=== PATIENT | female | born 1965 | race Two or more races ===

== ENCOUNTER 2016-11-04 00:28 | Emergency (ER) | END 2016-11-04 03:30 | disposition left against medical advice (07) | LOC: EDSEX → ER 00:28 | DX: Z53.21 Procedure and treatment not carried out due to patient leaving prior to being seen by health care provider (principal) ==

== ENCOUNTER 2016-11-06 12:31 | Emergency (ER) | payer MEDICARE, MEDICAID ==
--- NOTE | 2016-11-06 13:07 | ER Document Report ---
ED Medical Screen (RME) - General Chief Complaint: High Blood Pressure Stated Complaint: FEVER/BLOOD PRESSURE PROBLEMS Notes: Patient says that she's had a rash all over her body for about a month. Patient came here Friday for this condition, but it was so busy that she did not get seen. She went to a local physician's office today the rash and was noted to have a blood pressure, according to the patient, of around 230. The physician called EMS to transport the patient here. Patient says she has a history of high blood pressure but has been out of her medications for over a week. Patient does not have any symptoms that she attributes to the high blood pressure. Specifically, denies any headache, chest pain, shortness of breath, etc. Does say that she's had some fever for a couple of days. Finally, patient is out of her diabetes medications (NIDDM) for about 4 days. Patient is from [facility], but has permanently moved to this area. TRAVEL OUTSIDE OF THE [place] IN LAST 30 DAYS: No - Related Data Allergies/Adverse Reactions: No Known Allergies Allergy (Verified 11/06/16 12:56) Past Medical History Renal/ Medical History: Denies: Hx Peritoneal Dialysis Physical Exam - Vital signs Vitals: Temp Pulse Resp BP Pulse Ox 98.4 F 74 20 198/90 H 98 11/06/16 12:44 11/06/16 12:44 11/06/16 12:44 11/06/16 12:44 11/06/16 12:44 Course - Vital Signs Vital signs: Temp Pulse Resp BP Pulse Ox 98.4 F 74 20 198/90 H 98 11/06/16 12:44 11/06/16 12:44 11/06/16 12:44 11/06/16 12:44 11/06/16 12:44
[2016-11-06 13:39] LABS: ABSOLUTE BASOPHILS # (AUTO) 0.1 10^3/uL (0.0-0.2); ABSOLUTE EOSINOPHILS # (AUTO) 0.3 10^3/uL (0.0-0.6); ABSOLUTE LYMPHOCYTES (AUTO) 2.1 10^3/uL (0.5-4.7); ABSOLUTE MONOCYTES (AUTO) 0.4 10^3/uL (0.1-1.4); ABSOLUTE NEUT (AUTO) 6.6 10^3/uL (1.7-8.2); BASOPHILS % (AUTO) 0.6 % (0-2); EOSINOPHILS % (AUTO) 3.1 % (0-6); HEMATOCRIT 40.9 % (37.9-51.0); HEMOGLOBIN 13.6 g/dL (13.5-17.0); HGB HCT DIFFERENCE -0.1; MEAN CORPUSCULAR HEMOGLOBIN 26.9 pg (27.0-33.4); MEAN CORPUSCULAR HGB CONC 33.3 g/dL (32.0-36.0); MEAN CORPUSCULAR VOLUME 81 fl (80-97); MONOCYTES % (AUTO) 4.2 % (3-13); RED BLOOD COUNT 5.06 10^6/uL (4.35-5.55); RED CELL DISTRIBUTION WIDTH 14.7 % (11.5-14.0); SEGMENTED NEUTROPHILS % (AUTO) 70.1 % (42-78); WHITE BLOOD COUNT 9.4 10^3/uL (4.0-10.5)
[2016-11-06 13:46] LABS: ALANINE AMINOTRANSFERASE 32 U/L (21-72); ALBUMIN 3.8 g/dL (3.5-5.0); ALKALINE PHOSPHATASE 117 U/L (38-126); ANION GAP 10 (5-19); ASPARTATE AMINO TRANSFERASE 25 U/L (17-59); BILIRUBIN,DIRECT 0.2 mg/dL (0.0-0.4); BILIRUBIN,TOTAL 0.5 mg/dL (0.2-1.3); BLOOD UREA NITROGEN 14 mg/dL (7-20); CARBON DIOXIDE 27 mmol/L (22-30); CHLORIDE 104 mmol/L (98-107); CREATININE RESULT 0.96 mg/dL (0.52-1.25); GLUCOSE 169 mg/dL (75-110); POTASSIUM 4.7 mmol/L (3.6-5.0); SODIUM 141.2 mmol/L (137-145); TOTAL PROTEIN 7.2 g/dL (6.3-8.2)
[2016-11-06 13:50] LABS: APPEARANCE,URINE CLOUDY; BILIRUBIN,URINE NEGATIVE (NEGATIVE); GLUCOSE, URINE 50 mg/dL (NEGATIVE); KETONES,URINE NEGATIVE (NEGATIVE); LEUKOCYTE ESTERASE,URINE SMALL (NEGATIVE); NITRITE,URINE NEGATIVE (NEGATIVE); PROTEIN,URINE NEGATIVE (NEGATIVE); URINE SPECIFIC GRAVITY 1.019; UROBILINOGEN,URINE NEGATIVE mg/dL (<2.0)
[2016-11-06] MEDS ORDERED: METFORMIN HCL 500 MG TABLET PO ONE (13:50)
[2016-11-06] MEDS ORDERED: LOSARTAN POTASSIUM 50 MG TABLET PO ONE (13:50)
--- NOTE | 2016-11-06 14:04 | ER Document Report ---
ED General - General Chief Complaint: High Blood Pressure Stated Complaint: FEVER/BLOOD PRESSURE PROBLEMS Mode of Arrival: Ambulatory Information source: Patient Notes: 51-year-old female presents with multiple complaints. Patient recently moved here and is out of her blood pressure and diabetes medication. Patient notes she went to a clinic and was noted to have high blood pressure was immediately sent in for evaluation. Patient also notes that she has had a rash throughout her body which has been itchy red. Patient also notes that she has had fevers which resolved a few days ago TRAVEL OUTSIDE OF THE [place] IN LAST 30 DAYS: No - HPI Onset: Other Onset/Duration: Persistent Quality of pain: Burning Severity: Mild Pain Level: 1 Associated symptoms: Other Exacerbated by: Denies Relieved by: Denies Similar symptoms previously: Yes Recently seen / treated by doctor: Yes - Related Data Allergies/Adverse Reactions: No Known Allergies Allergy (Verified 11/06/16 12:56) Home Medications: Current Home Medications Albuterol Sulfate [Proair HFA] 1 - 2 puff IH Q4 PRN 11/06/16 [History] Losartan Potassium 50 mg PO BID 11/06/16 [History] Metformin HCl [Metformin HCl ER] 1,000 mg PO BID 11/06/16 [History] Past Medical History - Social History Smoking Status: Never Smoker Cigarette use (# per day): No Chew tobacco use (# tins/day): No Smoking Education Provided: No Frequency of alcohol use: None Drug Abuse: None Family History: Reviewed & Not Pertinent Patient has suicidal ideation: No Patient has homicidal ideation: No - Past Medical History Cardiac Medical History: Reports: Hx Hypertension Pulmonary Medical History: Reports: Hx Asthma Endocrine Medical History: Reports: Hx Diabetes Mellitus Type 1 - Immunizations Hx Diphtheria, Pertussis, Tetanus Vaccination: Yes Review of Systems - Review of Systems Notes: REVIEW OF SYSTEMS: CONSTITUTIONAL : Admits to fever EENT: Denies eye, ear, throat, or mouth pain or symptoms. Denies nasal or sinus congestion or discharge. Denies throat, tongue, or mouth swelling or difficulty swallowing. CARDIOVASCULAR: Denies chest pain. Denies palpitations or racing or irregular heart beat. Denies ankle edema. RESPIRATORY: Denies cough, cold, or chest congestion. Denies shortness of breath, difficulty breathing, or wheezing. GASTROINTESTINAL: Denies abdominal pain or distention. Denies nausea, vomiting , or diarrhea. Denies blood in vomitus, stools, or per rectum. Denies black, tarry stools. Denies constipation. GENITOURINARY: Denies difficulty urinating, painful urination, burning, frequency, blood in urine, or discharge. FEMALE GENITOURINARY: Denies vaginal bleeding, heavy or abnormal periods, irregular periods. Denies vaginal discharge or odor. MUSCULOSKELETAL: Denies back or neck pain or stiffness. Denies joint pain or swelling. SKIN: Admits to generalized rash HEMATOLOGIC : Denies easy bruising or bleeding. LYMPHATIC: Denies swollen, enlarged glands. NEUROLOGICAL: Denies confusion or altered mental status. Denies passing out or loss of consciousness. Denies dizziness or lightheadedness. Denies headache. Denies weakness or paralysis or loss of use of either side. Denies problems with gait or speech. Denies sensory loss, numbness, or tingling. Denies seizures. PSYCHIATRIC: Denies anxiety or stress. Denies depression, suicidal ideation, or homicidal ideation. ALL OTHER SYSTEMS REVIEWED AND NEGATIVE. Dictation was performed using [employer] voice recognition software PHYSICAL EXAMINATION: GENERAL: Well-appearing, well-nourished and in no acute distress. HEAD: Atraumatic, normocephalic. EYES: Pupils equal round and reactive to light, extraocular movements intact, conjunctiva are normal. ENT: Nares patent, oropharynx clear without exudates. Moist mucous membranes. NECK: Normal range of motion, supple without lymphadenopathy LUNGS: Breath sounds clear to auscultation bilaterally and equal. No wheezes rales or rhonchi. HEART: Regular rate and rhythm without murmurs ABDOMEN: Soft, nontender, nondistended abdomen. No guarding, no rebound. No masses appreciated. Female : deferred Musculoskeletal: Normal range of motion, no pitting or edema. No cyanosis. NEUROLOGICAL: Cranial nerves grossly intact. Normal speech, normal gait. Normal sensory, motor exams PSYCH: Normal mood, normal affect. SKIN: Extensive rash lev noted on abd, under breasts bilateral right worse than left , no obvious secondary sign of infection. Physical Exam - Vital signs Vitals: Temp Pulse Resp BP Pulse Ox 98.4 F 74 20 198/90 H 98 11/06/16 12:44 11/06/16 12:44 11/06/16 12:44 11/06/16 12:44 11/06/16 12:44 Course - Re-evaluation Re-evalutation: 11/06/16 15:25 Lab work noted no significant abnormality except for mild hypoglycemia, patient will be given refill on her blood pressure and diabetes medication, she will be treated for her candidiasis as well as antibiotics for possible secondary infection which at this time I do not see however given history of recent fever I have high suspicion for After performing a Medical Screening Examination, I estimate there is LOW risk for any life threatening rash. At this time the patient looks extremely well and there are no signs of systemic infection, however this may change at any time and the rash may change. I have reevaluated this patient multiple times and no significant life threatening changes are noted. The patient and I have discussed the diagnosis and risks, and we agree with discharging home with close follow-up with the understanding that symptoms and presentations can change. We also discussed returning to the Emergency Department immediately if new or worsening symptoms occur. We have discussed the symptoms which are most concerning (e.g., changing or worsening pain, fever, numbness, weakness, cool or painful digits) that necessitate immediate return. - Vital Signs Vital signs: Temp Pulse Resp BP Pulse Ox 98.4 F 74 20 179/80 H 99 11/06/16 12:44 11/06/16 12:44 11/06/16 14:01 11/06/16 14:01 11/06/16 14:01 - Laboratory Result Diagrams: 11/06/16 13:05 11/06/16 13:05 Laboratory results interpreted by me: 11/06/16 11/06/16 11/06/16 13:05 13:05 13:10 MCH 26.9 L RDW 14.7 H Glucose 169 H Urine Glucose (UA) 50 H Ur Leukocyte Esterase SMALL H Discharge - Discharge Clinical Impression: Medication refill, Yeast infection Hypertension Qualifiers: Hypertension type: essential hypertension Qualified Code(s): I10 - Essential ( primary) hypertension Condition: Stable Disposition: HOME, SELF-CARE Instructions: High Blood Pressure, Requiring Treatment ([facility]) Prescriptions: Albuterol Sulfate [Proair HFA Inhalation Aerosol 8.5 gm MDI] 2 puff IH Q4H PRN # 1 mdi PRN Reason: Clindamycin HCl 300 mg PO Q6 #40 capsule Fluconazole [Diflucan] 150 mg PO ONCE PRN #2 tablet PRN Reason: Losartan Potassium 50 mg PO BID #60 tablet Metformin HCl [Glucophage] 1,000 mg PO BID #60 tablet Nystatin 30 gm TP BID 14 Days Referrals: RUTHIE MODI DO [ACTIVE STAFF] - Follow up in 3-5 days
[2016-11-06 14:13] VITALS: BP 179/80
--- NOTE | 2016-11-06 20:08 | EKG REPORT ---
SEVERITY:- BORDERLINE ECG - SINUS RHYTHM BORDERLINE PROLONGED QT INTERVAL : Confirmed by: Karon Castillo MD 06-Nov-2016 20:07:03
== END 2016-11-06 14:13 | disposition home or self-care (01) ==
LOC: ER 12:31 → EDSEX 12:31 → ER 14:13
DX: Z76.0 Encounter for issue of repeat prescription (principal); B37.9 Candidiasis, unspecified; R03.0 Elevated blood-pressure reading, without diagnosis of hypertension; R50.9 Fever, unspecified
CPT/HCPCS: 93005; 99284; 36415; 87040; 85025; 80053; 81001; 93010; A9270 ×2

== ENCOUNTER 2016-11-18 10:32 | Emergency (ER) | payer MEDICARE, MEDICAID ==
--- NOTE | 2016-11-18 11:12 | ER Document Report ---
HPI - HPI Patient complains to provider of: skin rash Onset: Other Onset/Duration: Persistent - 3 months, worse in the past 2 weeks Quality of pain: Burning Pain Level: 5 Context: Patient complains of pruritic skin rash for the past several months that worsened over the past 2 weeks. Patient complains of burning and itching to extremities. Patient has seen her primary doctor for this and given medications but continues with symptoms. Patient does state that she was diagnosed with psoriasis as a child but has not had any other flareups. Associated Symptoms: Other - Skin rash. denies: Fever Exacerbated by: Denies Relieved by: Denies Similar symptoms previously: Yes Recently seen / treated by doctor: Yes - ROS ROS below otherwise negative: Yes Systems Reviewed and Negative: Yes All other systems reviewed and negative - CONSTITUTIONAL Constitutional: DENIES: Fever, Chills - NEURO Neurology: DENIES: Weakness - RESPIRATORY Respiratory: DENIES: Trouble Breathing, Coughing - GASTROINTESTINAL Gastrointestinal: DENIES: Nausea - DERM Skin Color: Erythema Skin Problems: Rash Past Medical History - General Information source: Patient - Social History Smoking Status: Never Smoker Frequency of alcohol use: None Drug Abuse: None Occupation: none Lives with: Family Family History: Reviewed & Not Pertinent Patient has suicidal ideation: No Patient has homicidal ideation: No - Past Medical History Cardiac Medical History: Reports: Hx Hypertension Pulmonary Medical History: Reports: Hx Asthma Endocrine Medical History: Reports: Hx Diabetes Mellitus Type 1 Renal/ Medical History: Denies: Hx Peritoneal Dialysis Skin Medical History: Reports Hx Psoriasis Past Surgical History: Reports: Hx Cholecystectomy - Immunizations Hx Diphtheria, Pertussis, Tetanus Vaccination: Yes Vertical Provider Document - CONSTITUTIONAL Agree With Documented VS: Yes Exam Limitations: No Limitations General Appearance: WD/WN, No Apparent Distress - INFECTION CONTROL TRAVEL OUTSIDE OF THE [place] IN LAST 30 DAYS: No - HEENT HEENT: Atraumatic, Normocephalic - NECK Neck: Normal Inspection, Supple - RESPIRATORY Respiratory: Breath Sounds Normal, No Respiratory Distress, Chest Non-Tender O2 Sat by Pulse Oximetry: 97 - CARDIOVASCULAR Cardiovascular: Regular Rate, Regular Rhythm, No Murmur - BACK Back: Normal Inspection - MUSCULOSKELETAL/EXTREMETIES Musculoskeletal/Extremeties: MAEW - NEURO Level of Consciousness: Awake, Alert, Appropriate - DERM Integumentary: Warm, Dry, Rash - Diffuse erythematous maculopapular rash with scaling plaques distributed to trunk, extremities and back. Bilateral lower extremities with confluent patches and erythema with opened crusted lesions to lower extremity. Course - Re-evaluation Re-evalutation: 11/18/16 11:[address] Hudson, Dr Hudson to bedside for examination. Does not recommend any additional steroids or antifungal medication. Recommends continued use of hydroxyzine that patient has an outpatient follow-up with dermatology for further evaluation. - Vital Signs Vital signs: Temp Pulse Resp BP Pulse Ox 98.4 F 76 16 188/86 H 97 11/18/16 10:36 11/18/16 10:36 11/18/16 10:36 11/18/16 10:36 11/18/16 10:36 Discharge - Discharge Clinical Impression: Skin rash, History of hypertension Cellulitis Qualifiers: Site of cellulitis: extremity Site of cellulitis of extremity: lower extremity Laterality: unspecified laterality Qualified Code(s): L03.119 - Cellulitis of unspecified part of limb Condition: Stable Disposition: HOME, SELF-CARE Instructions: High Blood Pressure ([facility]), Cellulitis ([facility]), Cephalexin ([facility]) Additional Instructions: Return immediately for any new or worsening symptoms Followup with your primary care provider, call tomorrow to make a followup appointment You'll need to follow-up with a business broker, call today for a follow-up appointment. Your primary doctor may need to make the referral to dermatology. Continue to take the hydroxyzine to help with itching. You may use a mild lotion such as Cetaphil, Aquaphor or Lubriderm to help moisturize skin Prescriptions: Cephalexin Monohydrate [Keflex 500 mg Capsule] 500 mg PO Q6H 5 Days Forms: Elevated Blood Pressure Referrals: DERMATOLOGY [Provider Group] - Follow up as needed RUTHIE MODI DO [ACTIVE STAFF] - Follow up tomorrow
[2016-11-18 11:51] VITALS: BP 151/67
== END 2016-11-18 11:51 | disposition home or self-care (01) ==
LOC: ER 10:32
DX: R21 Rash and other nonspecific skin eruption (principal); L03.119 Cellulitis of unspecified part of limb; L40.9 Psoriasis, unspecified; E10.9 Type 1 diabetes mellitus without complications; I10 Essential (primary) hypertension; J45.909 Unspecified asthma, uncomplicated
CPT/HCPCS: 99282

== ENCOUNTER 2017-09-30 12:19 | Inpatient (IN) | payer MEDICAID, MEDICARE ==
--- NOTE | 2017-09-30 13:00 | ER Document Report ---
ED Medical Screen (RME) - General Chief Complaint: Vomiting Stated Complaint: VOMITING Time Seen by Provider: 09/30/17 12:46 Mode of Arrival: Ambulatory Information source: Patient Notes: 52-year-old female presents with complaints of epigastric abdominal pain last night with one episode of vomiting small amount of blood. Patient notes she had a fever of 104 yesterday but since then everything has resolved. She denies any pain at this time or any other concerns I have greeted and performed a rapid initial assessment of this patient. A comprehensive ED assessment and evaluation of the patient, analysis of test results and completion of the medical decision making process will be conducted by additional ED providers. PHYSICAL EXAMINATION: GENERAL: Well-appearing, well-nourished and in no acute distress. HEAD: Atraumatic, normocephalic. EYES: Pupils equal round extraocular movements intact, conjunctiva are normal. ENT: Nares patent NECK: Normal range of motion LUNGS: No respiratory distress Musculoskeletal: Normal range of motion NEUROLOGICAL: Normal speech, normal gait. PSYCH: Normal mood, normal affect. SKIN: Warm, Dry, normal turgor, no rashes or lesions noted. TRAVEL OUTSIDE OF THE [place] IN LAST 30 DAYS: No - Related Data Allergies/Adverse Reactions: No Known Allergies Allergy (Verified 09/30/17 12:40) Past Medical History - Social History Chew tobacco use (# tins/day): No Frequency of alcohol use: None Drug Abuse: None - Past Medical History Cardiac Medical History: Reports: Hx Hypercholesterolemia, Hx Hypertension Pulmonary Medical History: Reports: Hx Asthma Neurological Medical History: Reports: Hx Cerebrovascular Accident - 2008 Endocrine Medical History: Reports: Hx Diabetes Mellitus Type 1, Hx Diabetes Mellitus Type 2 Renal/ Medical History: Denies: Hx Peritoneal Dialysis Skin Medical History: Reports Hx Psoriasis Past Surgical History: Reports: Hx Cholecystectomy - Immunizations Hx Diphtheria, Pertussis, Tetanus Vaccination: Yes History of Influenza Vaccine for 04/2017 - 09/2017 Season: Yes Influenza Administration Date for 04/2017 - 09/2017 Season: 08/21/16 Physical Exam - Vital signs Vitals: Temp Pulse Resp BP Pulse Ox 97.9 F 112 H 20 164/90 H 97 09/30/17 12:49 09/30/17 12:49 09/30/17 12:49 09/30/17 12:49 09/30/17 12:49 Course - Vital Signs Vital signs: Temp Pulse Resp BP Pulse Ox 97.9 F 112 H 20 164/90 H 97 09/30/17 12:49 09/30/17 12:49 09/30/17 12:49 09/30/17 12:49 09/30/17 12:49
[2017-09-30 13:28] LABS: HEMATOCRIT 44.1 % (36.0-47.0); HEMOGLOBIN 14.4 g/dL (12.0-15.5); MEAN CORPUSCULAR HEMOGLOBIN 26.5 pg (27.0-33.4); MEAN CORPUSCULAR HGB CONC 32.6 g/dL (32.0-36.0); MEAN CORPUSCULAR VOLUME 81 fl (80-97); PLATELET COUNT 288 10^3/uL (150-450); RED BLOOD COUNT 5.43 10^6/uL (3.72-5.28); RED CELL DISTRIBUTION WIDTH 13.9 % (11.5-14.0); WHITE BLOOD COUNT 21.5 10^3/uL (4.0-10.5)
[2017-09-30 13:37] LABS: APPEARANCE,URINE SLIGHTLY-CLOUDY; BILIRUBIN,URINE NEGATIVE (NEGATIVE); COLOR,URINE YELLOW; GLUCOSE, URINE 150 mg/dL (NEGATIVE); KETONES,URINE NEGATIVE (NEGATIVE); LEUKOCYTE ESTERASE,URINE MODERATE (NEGATIVE); NITRITE,URINE NEGATIVE (NEGATIVE); PROTEIN,URINE 30 mg/dL (NEGATIVE); URINE SPECIFIC GRAVITY 1.018
[2017-09-30 13:45] LABS: ABSOLUTE LYMPHOCYTES# (MANUAL) 0.4 10^3/uL (0.5-4.7); ABSOLUTE MONOCYTES # (MANUAL) 0.2 10^3/uL (0.1-1.4); ABSOLUTE NEUTROPHILS# (MANUAL) 20.9 10^3/uL (1.7-8.2); BAND NEUTROPHILS % (MANUAL) 2 % (3-5); BASOPHILS % (MANUAL) 0 % (0-2); EOSINOPHILS % (MANUAL) 0 % (0-6); LYMPHOCYTES % (MANUAL) 2 % (13-45); MONOCYTES % (MANUAL) 1 % (3-13); SEGMENTED NEUTROPHILS % (MAN) 95 % (42-78); TOTAL CELLS COUNTED 100
[2017-09-30 13:46] LABS: ALANINE AMINOTRANSFERASE 131 U/L (9-52); ALBUMIN 4.3 g/dL (3.5-5.0); ALKALINE PHOSPHATASE 183 U/L (38-126); ANION GAP 15 (5-19); ASPARTATE AMINO TRANSFERASE 144 U/L (14-36); BILIRUBIN,DIRECT 0.7 mg/dL (0.0-0.4); BILIRUBIN,TOTAL 1.6 mg/dL (0.2-1.3); BLOOD UREA NITROGEN 14 mg/dL (7-20); CALCIUM 9.7 mg/dL (8.4-10.2); CARBON DIOXIDE 20 mmol/L (22-30); CHLORIDE 103 mmol/L (98-107); CREATINE KINASE 113 U/L (30-135); GLUCOSE 340 mg/dL (75-110); LIPASE 51.9 U/L (23-300); POTASSIUM 3.9 mmol/L (3.6-5.0); RBC MORPHOLOGY COMMENT NORMO-CYTIC/CHROMIC; SODIUM 138.3 mmol/L (137-145); TOTAL PROTEIN 7.8 g/dL (6.3-8.2); TOXIC GRANULATION SLIGHT
[2017-09-30 13:47] LABS: PLATELET COMMENT ADEQUATE
--- NOTE | 2017-09-30 13:52 | RADIOLOGY REPORT (SQ) ---
EXAM DESCRIPTION: CHEST PA/LAT COMPLETED DATE/TIME: 09/30/2017 1:37 pm REASON FOR STUDY: fever COMPARISON: None. NUMBER OF VIEWS: Two view. TECHNIQUE: Frontal and lateral radiographic views of the chest acquired. LIMITATIONS: None. FINDINGS: LUNGS AND PLEURA: No opacities, masses or pneumothorax. No pleural effusion. MEDIASTINUM AND HILAR STRUCTURES: No masses or contour abnormalities. HEART AND VASCULATURE: Heart normal size. No evidence for failure. BONY STRUCTURES: No acute findings. HARDWARE: None. OTHER: No other significant finding. IMPRESSION: NO SIGNIFICANT RADIOGRAPHIC FINDING IN THE CHEST. TECHNICAL DOCUMENTATION: JOB ID: [id number] [employer]- All Rights Reserved Reading location - IP/workstation name: [email or web address]
[2017-09-30] MEDS ORDERED: NORMAL SALINE 1000 ML 1,000 ML IV ONE ×2 (13:54→16:43)
--- NOTE | 2017-09-30 13:55 | ER Document Report ---
ED General - General Chief Complaint: Vomiting Stated Complaint: VOMITING Time Seen by Provider: 09/30/17 12:46 Mode of Arrival: Ambulatory Notes: This is a 52-year-old female patient, history of cirrhosis, history of diabetes with history of stroke within the last year. States that she had a fever yesterday with chest pain and burning in the chest. Fever at home was 104 with an oral thermometer. Some nausea but no vomiting. No abdominal pain. No back pain. No shortness of breath. Also complaining of burning in her breasts TRAVEL OUTSIDE OF THE [place] IN LAST 30 DAYS: No - HPI Onset: Yesterday Onset/Duration: Constant - Related Data Allergies/Adverse Reactions: No Known Allergies Allergy (Verified 09/30/17 12:40) Past Medical History - General Information source: Patient - Social History Smoking Status: Never Smoker Cigarette use (# per day): No Chew tobacco use (# tins/day): No Frequency of alcohol use: None Drug Abuse: None Lives with: Spouse/Significant other Family History: CAD, CVA, DM, Hypertension Patient has suicidal ideation: No Patient has homicidal ideation: No - Past Medical History Cardiac Medical History: Reports: Hx Hypercholesterolemia, Hx Hypertension Pulmonary Medical History: Reports: Hx Asthma Neurological Medical History: Reports: Hx Cerebrovascular Accident - 2008 Endocrine Medical History: Reports: Hx Diabetes Mellitus Type 1, Hx Diabetes Mellitus Type 2 Renal/ Medical History: Denies: Hx Peritoneal Dialysis Skin Medical History: Reports Hx Psoriasis Past Surgical History: Reports: Hx Cholecystectomy - Immunizations Hx Diphtheria, Pertussis, Tetanus Vaccination: Yes Hx Pneumococcal Vaccination: 02/18/09 Review of Systems - Review of Systems Constitutional: Chills, Fever, Weakness. denies: Malaise EENT: denies: Eye pain, Double vision, Ear pain, Throat pain, Difficulty swallowing, Throat swelling, Mouth pain Cardiovascular: Chest pain, Heart racing, Lightheaded. denies: Dizziness Respiratory: Hurts to breathe. denies: Cough, Short of breath, Wheezing Gastrointestinal: denies: Abdominal pain, Diarrhea, Nausea, Vomiting Genitourinary: denies: Burning, Dysuria, Discharge, Flank pain, Urgency Musculoskeletal: denies: Back pain, Gout, Joint pain Skin: denies: Dryness, Lesions, Lumps, Rash Hematologic/Lymphatic: denies: Anemia, Blood clots, Easy bleeding, Easy bruising Neurological/Psychological: Numbness - From previous stroke affecting the left side.. denies: Confusion, Dementia, Depression, Weakness Physical Exam - Vital signs Vitals: Temp Pulse Resp BP Pulse Ox 97.9 F 112 H 20 164/90 H 97 09/30/17 12:49 09/30/17 12:49 09/30/17 12:49 09/30/17 12:49 09/30/17 12:49 Interpretation: Tachycardic - General General appearance: Appears well, Alert - HEENT Head: Normocephalic, Atraumatic Eyes: Normal Pupils: PERRL - Respiratory Respiratory status: No respiratory distress Chest status: Nontender Breath sounds: Normal Chest palpation: Normal - Cardiovascular Rhythm: Tachycardia Heart sounds: Normal auscultation Murmur: No Notes: Outpatient of the sternal borders on the left and right cause some mild pain. Breast exam negative for significant little lumps or bumps. No obvious breast cellulitis. - Abdominal Inspection: Normal Distension: No distension Bowel sounds: Normal Tenderness: Nontender Organomegaly: No organomegaly - Back Back: Normal, Nontender - Extremities General upper extremity: Normal inspection, Nontender, Normal color, Normal ROM , Normal temperature General lower extremity: Normal inspection, Nontender, Normal color, Normal ROM , Normal temperature, Normal weight bearing. No: Vishnu's sign - Neurological Neuro grossly intact: Yes Cognition: Normal Orientation: AAOx4 Dickson Coma Scale Eye Opening: Spontaneous Kermit Coma Scale Verbal: Oriented Kermit Coma Scale Motor: Obeys Commands Kermit Coma Scale Total: 15 Speech: Normal Motor strength normal: LUE, RUE, LLE, RLE Sensory: Normal - Psychological Associated symptoms: Normal affect, Normal mood - Skin Skin Temperature: Warm Skin Moisture: Dry Skin Color: Normal Course - Re-evaluation Re-evalutation: 09/30/17 13:58 She with reported fever at home of 104. Elevated white count over 20,000. Getting blood cultures and lactic acid. IV fluids, CT chest and reassess. 09/30/17 14:02 Elevated cardiac troponin at 0.129. Aspirin ordered. EKG ordered. CTA of the chest ordered. 09/30/17 16:42 Patient appears to have pneumonia based on CT scan. Elevated WBC count at over 20,000. IV fluids, antibiotics started. Consulted hospitalist who will admit at this time. - Vital Signs Vital signs: Temp Pulse Resp BP Pulse Ox 97.9 F 112 H 20 164/90 H 97 09/30/17 12:49 09/30/17 12:49 09/30/17 12:49 09/30/17 12:49 09/30/17 12:49 - Laboratory Result Diagrams: 09/30/17 13:12 09/30/17 13:12 Laboratory results interpreted by me: 09/30/17 09/30/17 09/30/17 13:12 13:12 13:12 WBC 21.5 H RBC 5.43 H MCH 26.5 L Seg Neuts % (Manual) 95 H Band Neutrophils % 2 L Lymphocytes % (Manual) 2 L Monocytes % (Manual) 1 L Abs Neuts (Manual) 20.9 H Abs Lymphs (Manual) 0.4 L Carbon Dioxide 20 L Glucose 340 H Lactic Acid Total Bilirubin 1.6 H Direct Bilirubin 0.7 H AST 144 H ALT 131 H Alkaline Phosphatase 183 H Urine Protein 30 H Urine Glucose (UA) 150 H Urine Urobilinogen 2.0 H Ur Leukocyte Esterase MODERATE H 09/30/17 15:47 WBC RBC MCH Seg Neuts % (Manual) Band Neutrophils % Lymphocytes % (Manual) Monocytes % (Manual) Abs Neuts (Manual) Abs Lymphs (Manual) Carbon Dioxide Glucose Lactic Acid 2.6 H Total Bilirubin Direct Bilirubin AST ALT Alkaline Phosphatase Urine Protein Urine Glucose (UA) Urine Urobilinogen Ur Leukocyte Esterase - EKG Interpretation by Fl EKG shows normal: Sinus rhythm, [place], Intervals, QRS Complexes. abnormal: ST-T Waves When compared to previous EKG there are: No significant change Additional EKG results interpreted by me: 09/30/17 16:11 T-wave inversions inferior lateral leads Discharge - Discharge Clinical Impression: SIRS (systemic inflammatory response syndrome) Bilateral pneumonia Qualifiers: Pneumonia type: due to unspecified organism Lung location: unspecified part of lung Qualified Code(s): J18.9 - Pneumonia, unspecified organism Condition: Good Disposition: ADMITTED INPATIENT Admitting Provider: Hospitalist - [facility] Admitted: Telemetry
[2017-09-30 13:58] LABS: CREATINE KINASE MB 1.61 ng/mL (<4.55)
[2017-09-30 14:00] LABS: TROPONIN I 0.129 ng/mL
[2017-09-30] MEDS ORDERED: ASPIRIN 81 MG TABLET, CHEWABLE PO ONE (14:01)
--- NOTE | 2017-09-30 16:30 | RADIOLOGY REPORT (SQ) ---
EXAM DESCRIPTION: CT CHEST WITH COMPLETED DATE/TIME: 09/30/2017 4:19 pm REASON FOR STUDY: chest pain, tachycardia, elevated ddimer COMPARISON: Chest x-ray dated 09/30/2017. TECHNIQUE: CT scan of the chest performed using helical scanning technique with dynamic intravenous contrast injection. Images reviewed with lung, soft tissue and bone windows. Reconstructed coronal and sagittal MPR images reviewed. All images stored on PACS. All CT scanners at this facility use dose modulation, iterative reconstruction, and/or weight based d osing when appropriate to reduce radiation dose to as low as reasonably achievable (ALARA). [facility]: Dose Right [facility]: CareDose [facility]: Dose Right [facility]: Teradose 4D [facility]: [email or web address] CONTRAST TYPE AND DOSE: contrast/concentration: Isovue 370.00 mg/ml; Total Contrast Delivered: 80.0 ml; Total Saline Delivered: 51.1 ml RENAL FUNCTION: BUN 14 creatinine 0.72. RADIATION DOSE: CT Rad equipment meets quality standard of care and radiation dose reduction techniq ues were employed. CTDIvol: 21.1 mGy. DLP: 803 mGy-cm. . LIMITATIONS: None. FINDINGS: LUNGS AND PLEURA: Scattered airspace disease in the right and left lower lobe. No pneumot horax. No effusions. HILAR AND MEDIASTINAL STRUCTURES: No identified masses or abnormal nodes. HEART AND VASCULAR STRUCTURES: No aneurysm or dissection. No central pulmonary emboli. No pericardi al effusion. HARDWARE: None in the chest. UPPER ABDOMEN: No significant findings. Limited exam. THYROID AND OTHER SOFT TISSUES: No masses. No adenopathy. BONES: No significant finding. OTHER: No other significant finding. IMPRESSION: SCATTERED AIRSPACE DISEASE IN THE RIGHT AND LEFT LOWER LOBE SUSPICIOUS FOR PNEUMONIA. TECHNICAL DOCUMENTATION: JOB ID: [id number] Quality ID # [id number]: Final reports with documentation of one or more dose reduction techniques (e.g., Au tomated exposure control, adjustment of the mA and/or kV according to patient size, use of iterative reconstruction technique) 2010 [employer]- All Rights Reserved Reading location - IP/workstation name: [email or web address]
[2017-09-30] MEDS ORDERED: PIPERACILLIN/TAZOBACTAM 3.375 GM VIAL IV ONE (16:36)
[2017-09-30] MEDS ORDERED: RINGERS SOLUTION,LACTATED 1,000 ML IV PRN (17:33)
[2017-09-30] MEDS ORDERED: OXYCODONE-ACETAMINOPHEN 5-325 MG TABLET PO PRN (17:33)
[2017-09-30] MEDS ORDERED: ACETAMINOPHEN 325 MG TABLET PO PRN (17:33)
[2017-09-30] MEDS ORDERED: IPRATROPIUM/ALBUTEROL 0.5-2.5 MG/3 ML AMPUL NEB PRN (17:33)
[2017-09-30] MEDS ORDERED: ZOLPIDEM TARTRATE 5 MG TABLET PO PRN (17:33)
[2017-09-30] MEDS ORDERED: DEXTROSE 40% GEL 15 GM TUBE PO PRN ×2 (18:23)
[2017-09-30] MEDS ORDERED: GLUCAGON,HUMAN RECOMB 1 MG INJ IM PRN (18:23)
[2017-09-30] MEDS ORDERED: DEXTROSE 50%-WATER 25 GM/50 ML DISP.SYRIN IV PRN ×2 (18:23)
[2017-09-30] MEDS ORDERED: (PENDING PHARMACY ID) (Hydroxyzine Hcl [Atarax 25 Mg Tablet] 25 MG) PO PRN (18:24)
[2017-09-30] MEDS ORDERED: HYDROXYZINE PAMOATE 25 MG CAPSULE PO PRN (18:35)
--- NOTE | 2017-09-30 18:35 | PDOC H&P ---
History of Present Illness Admission Date/PCP: 09/30/17 17:02 Patient complains of: difficulty breathing and shortness of breath History of Present Illness: KENNA HALL is a 52 year old female Difficulty breathing and shortness of breath. Patient states she was feeling well until yesterday evening when she started having difficulty breathing accompanied by generalized weakness and shortness of breath. She is also complaining of chest pain especially on inspiration. She denies any fever nausea or vomiting. Complains of some breast numbness and tingling. She was found to have pneumonia in the emergency room and also septic. Patient denies a cough dysuria frequency or any other pertinent symptoms. Past Medical History Cardiac Medical History: Reports: Hyperlipidema, Hypertension Pulmonary Medical History: Reports: Asthma EENT Medical History: Reports: None Neurological Medical History: Reports: Ischemic CVA Endocrine Medical History: Reports: Diabetes Mellitus Type 1, Diabetes Mellitus Type 2 Renal/ Medical History: Reports: None GI Medical History: Reports: None Skin Medical History: Reports: Psoriasis Psychiatric Medical History: Reports: None Past Surgical History Past Surgical History: Reports: Cholecystectomy Social History Information Source: Patient Lives with: Spouse/Significant other Smoking Status: Never Smoker Frequency of Alcohol Use: None Hx Recreational Drug Use: No Drugs: None Hx Prescription Drug Abuse: No - Advance Directive Resuscitation Status: Full Code Family History Family History: Reviewed & Not Pertinent, CAD, CVA, DM, Hypertension Parental Family History Reviewed: Yes Children Family History Reviewed: Yes Sibling(s) Family History Reviewed.: Yes Medication/Allergy Home Medications: Albuterol Sulfate [Proair HFA] 2 puff IH Q4HP PRN 05/12/17 Clobetasol Propionate [Clobetasol Propionate Solution] 1 applic TP BID 05/12/17 Hydroxyzine HCl [Atarax 25 mg Tablet] 25 mg PO DAILYP PRN 05/12/17 Losartan Potassium [Cozaar 50 mg Tablet] 50 mg PO Q12 05/12/17 Metformin HCl [Glucophage] 1,000 mg PO BIDBS 05/12/17 Aspirin [Aspirin 81 mg Chewable Tablet] 81 mg PO DAILY tab.chew 05/16/17 Atorvastatin Calcium [Lipitor 80 mg Tablet] 80 mg PO QHS #30 tablet 05/16/17 Buspirone HCl [Buspar 10 mg Tablet] 5 mg PO QAM #90 tablet 05/16/17 Buspirone HCl [Buspar 10 mg Tablet] 10 mg PO QHS #30 tablet 05/16/17 Clopidogrel Bisulfate [Plavix 75 mg Tablet] 75 mg PO DAILY #30 tablet 05/16/17 Divalproex Sodium [Depakote ER 500 mg Tab.sr] 500 mg PO Q12 #60 tab.sr.24h 05/16 Fenofibrate Nanocrystallized [Tricor 48 mg Tablet] 48 mg PO DAILY #30 tablet Flu Vacc [id number] 36Mos Up/Pf [Fluzone Adlt Quad [id number] Vac 0.5 ml Syr] 0.5 ml IM .DISCHARGE PRN disp.syrin 05/16/17 Metoprolol Tartrate [Lopressor 50 mg Tablet] 50 mg PO Q12 #60 tablet 05/16/17 Allergies/Adverse Reactions: No Known Allergies Allergy (Verified 09/30/17 12:40) Physical Exam Vital Signs: Temp Pulse Resp BP Pulse Ox 97.9 F 112 H 20 164/90 H 97 09/30/17 12:49 09/30/17 12:49 09/30/17 12:49 09/30/17 12:49 09/30/17 12:49 General appearance: PRESENT: no acute distress Head exam: PRESENT: atraumatic Eye exam: PRESENT: conjunctival injection Ear exam: PRESENT: normal external ear exam Neck exam: PRESENT: carotid bruit Respiratory exam: PRESENT: decreased breath sounds, rales, rhonchi, unlabored. ABSENT: wheezes Cardiovascular exam: PRESENT: RRR. ABSENT: diastolic murmur, rubs, systolic murmur Pulses: PRESENT: normal dorsalis pedis pul GI/Abdominal exam: PRESENT: normal bowel sounds, soft. ABSENT: distended, guarding, mass, organolmegaly, rebound, tenderness Extremities exam: PRESENT: full ROM. ABSENT: calf tenderness, clubbing, pedal edema Musculoskeletal exam: PRESENT: ambulatory, full ROM Neurological exam: PRESENT: alert, awake, oriented to person, oriented to place , oriented to time, oriented to situation, CN II-XII grossly intact. ABSENT: motor sensory deficit Psychiatric exam: PRESENT: appropriate affect, normal mood. ABSENT: homicidal ideation, suicidal ideation Skin exam: PRESENT: other - psoriatic lesions on bilateral lower extremities Results Laboratory Results: Laboratory 03/13/18 03/13/18 03/13/18 13:12 13:12 13:12 WBC 21.5 H RBC 5.43 H Hgb 14.4 Hct 44.1 MCV 81 MCH 26.5 L MCHC 32.6 RDW 13.9 Plt Count 288 Total Counted 100 Seg Neutrophils % Not Reportable Seg Neuts % (Manual) 95 H Band Neutrophils % 2 L Lymphocytes % Not Reportable Lymphocytes % (Manual) 2 L Monocytes % Not Reportable Monocytes % (Manual) 1 L Eosinophils % Not Reportable Eosinophils % (Manual) 0 Basophils % Not Reportable Basophils % (Manual) 0 Absolute Neutrophils Not Reportable Abs Neuts (Manual) 20.9 H Absolute Lymphocytes Not Reportable Abs Lymphs (Manual) 0.4 L Absolute Monocytes Not Reportable Abs Monocytes (Manual) 0.2 Absolute Eosinophils Not Reportable Absolute Eos (Manual) 0.0 Absolute Basophils Not Reportable Abs Basophils (Manual) 0.0 Toxic Granulation SLIGHT Platelet Comment ADEQUATE RBC Morph Comment NORMO-CYTIC/CHROMIC Sodium 138.3 Potassium 3.9 Chloride 103 Carbon Dioxide 20 L Anion Gap 15 BUN 14 Creatinine 0.72 Est GFR ( Amer) > 60 Est GFR (Non-Af Amer) > 60 Glucose 340 H Lactic Acid Calcium 9.7 Total Bilirubin 1.6 H Direct Bilirubin 0.7 H Neonat Total Bilirubin Not Reportable Neonat Direct Bilirubin Not Reportable Neonat Indirect Bili Not Reportable AST 144 H ALT 131 H Alkaline Phosphatase 183 H Creatine Kinase 113 CK-MB (CK-2) 1.61 Troponin I 0.129 Total Protein 7.8 Albumin 4.3 Lipase 51.9 Urine Color Urine Appearance Urine pH Ur Specific Marion Urine Protein Urine Glucose (UA) Urine Ketones Urine Blood Urine Nitrite Urine Bilirubin Urine Urobilinogen Ur Leukocyte Esterase Urine WBC (Auto) Urine RBC (Auto) Squamous Epi Cells Auto Urine Mucus (Auto) Urine Ascorbic Acid 09/30/17 09/30/17 09/30/17 13:12 15:47 15:47 WBC RBC Hgb Hct MCV MCH MCHC RDW Plt Count Total Counted Seg Neutrophils % Seg Neuts % (Manual) Band Neutrophils % Lymphocytes % Lymphocytes % (Manual) Monocytes % Monocytes % (Manual) Eosinophils % Eosinophils % (Manual) Basophils % Basophils % (Manual) Absolute Neutrophils Abs Neuts (Manual) Absolute Lymphocytes Abs Lymphs (Manual) Absolute Monocytes Abs Monocytes (Manual) Absolute Eosinophils Absolute Eos (Manual) Absolute Basophils Abs Basophils (Manual) Toxic Granulation Platelet Comment RBC Morph Comment Sodium Potassium Chloride Carbon Dioxide Anion Gap BUN Creatinine Est GFR ( Amer) Est GFR (Non-Af Amer) Glucose Lactic Acid 2.6 H Calcium Total Bilirubin Direct Bilirubin Neonat Total Bilirubin Neonat Direct Bilirubin Neonat Indirect Bili AST ALT Alkaline Phosphatase Creatine Kinase CK-MB (CK-2) Troponin I 0.149 Total Protein Albumin Lipase Urine Color YELLOW Urine Appearance SLIGHTLY-CLOUDY Urine pH 5.0 Ur Specific Marion 1.018 Urine Protein 30 H Urine Glucose (UA) 150 H Urine Ketones NEGATIVE Urine Blood NEGATIVE Urine Nitrite NEGATIVE Urine Bilirubin NEGATIVE Urine Urobilinogen 2.0 H Ur Leukocyte Esterase MODERATE H Urine WBC (Auto) 6 Urine RBC (Auto) 1 Squamous Epi Cells Auto 11 Urine Mucus (Auto) RARE Urine Ascorbic Acid NEGATIVE Impressions: Chest X-Ray 09/30/17 12:58 IMPRESSION: NO SIGNIFICANT RADIOGRAPHIC FINDING IN THE CHEST. Chest CT 09/30/17 14:01 IMPRESSION: SCATTERED AIRSPACE DISEASE IN THE RIGHT AND LEFT LOWER LOBE SUSPICIOUS FOR PNEUMONIA. Assessment & Plan - Diagnosis (1) Sepsis Qualifiers: Sepsis type: sepsis due to unspecified organism Qualified Code(s): A41.9 - Sepsis, unspecified organism Is this a current diagnosis for this admission?: Yes Plan: Secondary to Pneumonia, with fever at home, tachycardia, leukocytosis. (2) Elevated troponin I level Is this a current diagnosis for this admission?: Yes Plan: EKG shows no acute changes Will trend troponin, consult Cardiology. It may be elevated due to her acute infection (3) Morbid obesity with BMI of 40.0-44.9, adult Is this a current diagnosis for this admission?: Yes Plan: Weight loss suggested (4) Bilateral pneumonia Qualifiers: Pneumonia type: due to unspecified organism Lung location: unspecified part of lung Qualified Code(s): J18.9 - Pneumonia, unspecified organism Is this a current diagnosis for this admission?: Yes Plan: Follow up on cultures, continue Levaquin. (5) Diabetes mellitus Qualifiers: Diabetes mellitus type: type 2 Diabetes mellitus prison insulin use: without rodent exterminator use Diabetes mellitus complication status: with other specified complication Qualified Code(s): E11.69 - Type 2 diabetes mellitus with other specified complication (6) Psoriasis Is this a current diagnosis for this admission?: Yes Plan: Sliding scale insulin and Metformin once reconciled - Time Time Spent: 50 to 70 Minutes Medications reviewed and adjusted accordingly: Yes Anticipated discharge: Home Within: within 72 hours - Inpatient Certification Based on my medical assessment, after consideration of the patient's comorbidities, presenting symptoms, or acuity I expect that the services needed warrant INPATIENT care.: Yes Medical Necessity: Need For IV Fluids, Need for IV Antibiotics
[2017-09-30] MEDS ORDERED: CLOPIDOGREL BISULFATE 75 MG TABLET PO ONE (19:00)
[2017-09-30] MEDS: LEVOFLOXACIN 750 MG/D5W RTU 750 MG/150 ML RTUPB IV SCH (19:42)
--- NOTE | 2017-09-30 20:01 | EKG REPORT ---
SEVERITY:- ABNORMAL ECG - SINUS RHYTHM FIRST DEGREE AV BLOCK LVH WITH SECONDARY REPOLARIZATION ABNORMALITY : Confirmed by: Yony Salas MD 30-Sep-2017 20:00:43
[2017-09-30] MEDS: FAMOTIDINE 20 MG TABLET PO SCH (22:54)
[2017-09-30] MEDS: INSULIN LISPRO 100 UNIT/ML 3 ML VIAL SUBCUT PRN (22:55)
[2017-09-30] MEDS: LOSARTAN POTASSIUM 50 MG TABLET PO SCH (22:55)
[2017-09-30] MEDS: ATORVASTATIN CALCIUM 80 MG TABLET PO SCH (22:55)
[2017-09-30] MEDS: METOPROLOL TARTRATE 50 MG TABLET PO SCH (22:55)
[2017-09-30] MEDS: CLOBETASOL PROPIONATE 0.05% TOPICAL SOLN 25 ML TP SCH (22:55)
[2017-10-01 05:47] LABS: HEMATOCRIT 38.4 % (36.0-47.0); HEMOGLOBIN 12.5 g/dL (12.0-15.5); MEAN CORPUSCULAR HEMOGLOBIN 26.4 pg (27.0-33.4); MEAN CORPUSCULAR HGB CONC 32.5 g/dL (32.0-36.0); MEAN CORPUSCULAR VOLUME 81 fl (80-97); PLATELET COUNT 206 10^3/uL (150-450); RED BLOOD COUNT 4.72 10^6/uL (3.72-5.28); RED CELL DISTRIBUTION WIDTH 13.9 % (11.5-14.0); WHITE BLOOD COUNT 15.9 10^3/uL (4.0-10.5)
[2017-10-01 06:04] LABS: ANION GAP 11 (5-19); BLOOD UREA NITROGEN 13 mg/dL (7-20); CALCIUM 8.9 mg/dL (8.4-10.2); CARBON DIOXIDE 24 mmol/L (22-30); CHLORIDE 104 mmol/L (98-107); GLUCOSE 228 mg/dL (75-110); POTASSIUM 3.8 mmol/L (3.6-5.0); SODIUM 138.5 mmol/L (137-145)
[2017-10-01] MEDS: METOPROLOL TARTRATE 50 MG TABLET PO SCH ×2 (09:20→22:56)
[2017-10-01] MEDS: CLOPIDOGREL BISULFATE 75 MG TABLET PO SCH (09:20)
[2017-10-01] MEDS: ASPIRIN 81 MG TABLET, CHEWABLE PO SCH (09:21)
[2017-10-01] MEDS: LOSARTAN POTASSIUM 50 MG TABLET PO SCH ×2 (09:21→22:56)
[2017-10-01] MEDS: FAMOTIDINE 20 MG TABLET PO SCH ×2 (09:21→22:56)
[2017-10-01] MEDS: CLOBETASOL PROPIONATE 0.05% TOPICAL SOLN 25 ML TP SCH ×2 (09:23→22:59)
[2017-10-01] MEDS: DOCUSATE SODIUM 100 MG CAPSULE PO SCH (09:23)
[2017-10-01] MEDS: ENOXAPARIN SODIUM INJ 40 MG/0.4 ML DISP.SYRIN SUBCUT SCH (09:39)
[2017-10-01] MEDS: INSULIN LISPRO 100 UNIT/ML 3 ML VIAL SUBCUT PRN ×3 (09:39→22:57)
--- NOTE | 2017-10-01 17:44 | PDOC PROGRESS REPORT ---
Subjective Progress Note for:: 10/01/17 Subjective:: Patient admitted with difficulty breathing and found to have pneumonia. Patient feels a lot better this morning in fact she was asking to go home. She denies any chest pain nausea vomiting Reason For Visit: SEPSIS, PNA Physical Exam Vital Signs: Temp Pulse Resp BP Pulse Ox 98.4 F 96 16 168/76 H 99 10/01/17 16:05 10/01/17 16:05 10/01/17 16:05 10/01/17 16:05 10/01/17 16:05 Intake & Output 09/30/17 10/01/17 10/02/17 06:59 06:59 06:59 Intake Total 1100 Balance 1100 Weight 95.3 kg General appearance: PRESENT: no acute distress, cooperative, obese Head exam: PRESENT: atraumatic Eye exam: PRESENT: conjunctiva pink, EOMI, PERRLA. ABSENT: scleral icterus Ear exam: PRESENT: normal external ear exam Neck exam: ABSENT: carotid bruit, JVD, lymphadenopathy, thyromegaly Respiratory exam: PRESENT: rhonchi - right lower lobe Cardiovascular exam: PRESENT: RRR. ABSENT: diastolic murmur, rubs, systolic murmur Pulses: PRESENT: normal dorsalis pedis pul GI/Abdominal exam: PRESENT: normal bowel sounds, soft. ABSENT: distended, guarding, mass, organolmegaly, rebound, tenderness Extremities exam: PRESENT: +1 edema Musculoskeletal exam: PRESENT: ambulatory Neurological exam: PRESENT: alert, oriented to person, oriented to place, oriented to time, oriented to situation Skin exam: PRESENT: other - psoriatic lesions lower extremities Results Laboratory Results: 10/01/17 04:25 10/01/17 04:25 09/30/17 10/01/17 10/01/17 19:55 04:25 04:25 WBC 15.9 H RBC 4.72 Hgb 12.5 Hct 38.4 MCV 81 MCH 26.4 L MCHC 32.5 RDW 13.9 Plt Count 206 Sodium 138.5 Potassium 3.8 Chloride 104 Carbon Dioxide 24 Anion Gap 11 BUN 13 Creatinine 0.70 Est GFR ( Amer) > 60 Est GFR (Non-Af Amer) > 60 Glucose 228 H Lactic Acid 1.4 Calcium 8.9 09/30/17 22:20 Troponin I 0.107 Impressions: Chest X-Ray 09/30/17 12:58 IMPRESSION: NO SIGNIFICANT RADIOGRAPHIC FINDING IN THE CHEST. Chest CT 09/30/17 14:01 IMPRESSION: SCATTERED AIRSPACE DISEASE IN THE RIGHT AND LEFT LOWER LOBE SUSPICIOUS FOR PNEUMONIA. Assessment & Plan - Diagnosis (1) Sepsis Qualifiers: Sepsis type: sepsis due to unspecified organism Qualified Code(s): A41.9 - Sepsis, unspecified organism Is this a current diagnosis for this admission?: Yes Plan: Resolved (2) Elevated troponin I level Is this a current diagnosis for this admission?: Yes Plan: EKG shows no acute changes Likely elevated due to her acute infection. It has trended down (3) Morbid obesity with BMI of 40.0-44.9, adult Is this a current diagnosis for this admission?: Yes Plan: Weight loss suggested (4) Bilateral pneumonia Qualifiers: Pneumonia type: due to unspecified organism Lung location: unspecified part of lung Qualified Code(s): J18.9 - Pneumonia, unspecified organism Is this a current diagnosis for this admission?: Yes Plan: Negative blood cultures, continue Levaquin. (5) Diabetes mellitus Qualifiers: Diabetes mellitus type: type 2 Diabetes mellitus mcfp insulin use: without terminal manager use Diabetes mellitus complication status: with other specified complication Qualified Code(s): E11.69 - Type 2 diabetes mellitus with other specified complication Is this a current diagnosis for this admission?: Yes (6) Psoriasis Is this a current diagnosis for this admission?: Yes Plan: Clobatesol cream - Time Time Spent with patient: 15-24 minutes Medications reviewed and adjusted accordingly: Yes Anticipated discharge: Home Within: within 24 hours - Inpatient Certification Based on my medical assessment, after consideration of the patient's comorbidities, presenting symptoms, or acuity I expect that the services needed warrant INPATIENT care.: Yes Medical Necessity: Need for IV Antibiotics
[2017-10-01] MEDS: LEVOFLOXACIN 750 MG/D5W RTU 750 MG/150 ML RTUPB IV SCH (17:51)
--- NOTE | 2017-10-01 20:13 | Progress Note ---
Provider Note Provider Note: Patient was seen this morning in consultation. Patient was noted to have positive troponin I. Patient however denied any chest pain or prior history of heart problem. 2D echocardiogram is still pending. At this point, patient seems to be under good regimen except for elevated blood pressure. Have added Norvasc 5 mg p.o. daily. Patient will benefit from a nuclear stress test prior to discharge or early as an outpatient. This was explained to the patient.
[2017-10-01] MEDS ORDERED: BUSPIRONE HCL 10 MG TABLET PO SCH (22:00)
[2017-10-01] MEDS ORDERED: AMLODIPINE BESYLATE 5 MG TABLET PO SCH (22:00)
[2017-10-01] MEDS: ATORVASTATIN CALCIUM 80 MG TABLET PO SCH (22:56)
[2017-10-02 05:22] LABS: HEMATOCRIT 39.1 % (36.0-47.0); HEMOGLOBIN 12.9 g/dL (12.0-15.5); MEAN CORPUSCULAR HEMOGLOBIN 26.6 pg (27.0-33.4); MEAN CORPUSCULAR HGB CONC 32.9 g/dL (32.0-36.0); MEAN CORPUSCULAR VOLUME 81 fl (80-97); PLATELET COUNT 239 10^3/uL (150-450); RED BLOOD COUNT 4.84 10^6/uL (3.72-5.28); RED CELL DISTRIBUTION WIDTH 13.6 % (11.5-14.0); WHITE BLOOD COUNT 14.5 10^3/uL (4.0-10.5)
--- NOTE | 2017-10-02 07:24 | EKG REPORT ---
SEVERITY:- ABNORMAL ECG - SINUS RHYTHM VENTRICULAR PREMATURE COMPLEX BORDERLINE PROLONGED QT INTERVAL NONSPECIFIC ST-T CHANGES- INFERIOR-LATERAL LEADS : Confirmed by: Yony Salas MD 02-Oct-2017 07:23:44
[2017-10-02] MEDS ORDERED: BUSPIRONE HCL 10 MG TABLET PO SCH (08:00)
[2017-10-02] MEDS: ENOXAPARIN SODIUM INJ 40 MG/0.4 ML DISP.SYRIN SUBCUT SCH (09:44)
[2017-10-02] MEDS: INSULIN LISPRO 100 UNIT/ML 3 ML VIAL SUBCUT PRN (09:46)
[2017-10-02] MEDS: CLOPIDOGREL BISULFATE 75 MG TABLET PO SCH (09:48)
[2017-10-02] MEDS: LOSARTAN POTASSIUM 50 MG TABLET PO SCH (09:48)
[2017-10-02] MEDS: ASPIRIN 81 MG TABLET, CHEWABLE PO SCH (09:49)
[2017-10-02] MEDS: FAMOTIDINE 20 MG TABLET PO SCH (09:49)
[2017-10-02] MEDS: METOPROLOL TARTRATE 50 MG TABLET PO SCH (09:49)
[2017-10-02] MEDS: CLOBETASOL PROPIONATE 0.05% TOPICAL SOLN 25 ML TP SCH (09:50)
[2017-10-02] MEDS: DOCUSATE SODIUM 100 MG CAPSULE PO SCH (09:50)
--- NOTE | 2017-10-02 11:30 | PDOC PROGRESS REPORT ---
Subjective Progress Note for:: 10/02/17 Subjective:: Patient seems to be doing better with gradual improvement. Pt is denying any chest arm or neck discomfort. Patient denying any PND, orthopnea. Patient denied any sustained palpitations, dizziness, syncope, near syncope. Patient denying any fever chills. Patient denying any other significant discomfort. Patient is maintaining sinus rhythm. Review of systems: Rest review of systems negative. Medications: Medications have been reviewed. Reason For Visit: SEPSIS, PNA Physical Exam Vital Signs: Temp Pulse Resp BP Pulse Ox 97.4 F 81 18 145/66 H 98 10/02/17 08:11 10/02/17 09:48 10/02/17 09:48 10/02/17 08:11 10/02/17 09:48 Intake & Output 10/01/17 10/02/17 10/03/17 06:59 06:59 06:59 Intake Total 1100 300 Balance 1100 300 Weight 95.3 kg 95.3 kg Exam: GENERAL: well-nourished and in no acute distress. Alert and oriented x3 HEAD: Atraumatic, normocephalic. EYES: Pupils equal round and reactive to light, extraocular movements intact, sclera anicteric, conjunctiva are normal. ENT: TMs normal, nares patent, oropharynx clear without exudates. Moist mucous membranes. No oral ulcerations or bleeding gums noted NECK: supple without lymphadenopathy. Trachea is central. No cervical or axillary lymphadenopathy noted. Carotids are 2+, JVD WNL LUNGS: Respiration seems nonlabored, no significant accessory muscle action noted. Bibasilar fine crackles noted left more than right. No wheezes rales or rhonchi noted. No significant dullness noted on percussion. CHEST: Palpation of the chest wall shows no significant chest wall tenderness. No other significant abnormalities noted. HEART: [place] [employer], No PSH, 1/6 MARILIN aortic area, 1/6 metcalf systolic murmur mitral area, no rubs, no gallops. ABDOMEN: Soft, no significant tenderness appreciated, normoactive bowel sounds. No guarding, no rebound. No rigidity noted . No masses appreciated. EXTREMITIES: Pedal pulses are 1-2+, no calf tenderness noted. No clubbing or cyanosis.trace to 1+ pedal edema noted NEUROLOGICAL: Focused neurological exam showed no significant neurologic deficit. Normal speech, no focal weakness appreciated. PSYCH: Normal mood, normal affect. Judgment and insight within normal limits. SKIN: No significant ecchymosis, skin is noted to be warm. Psoriatic plaques rash noted both legs. MUSCULOSKELETAL EXAM: No significant acute joint swelling noted. Results Laboratory Results: 10/02/17 04:52 10/01/17 04:25 10/02/17 04:52 WBC 14.5 H RBC 4.84 Hgb 12.9 Hct 39.1 MCV 81 MCH 26.6 L MCHC 32.9 RDW 13.6 Plt Count 239 09/30/17 22:20 Troponin I 0.107 EKG Comments: Sinus rhythm with minor nonspecific ST-T wave changes. Impressions: Chest X-Ray 09/30/17 12:58 IMPRESSION: NO SIGNIFICANT RADIOGRAPHIC FINDING IN THE CHEST. Chest CT 09/30/17 14:01 IMPRESSION: SCATTERED AIRSPACE DISEASE IN THE RIGHT AND LEFT LOWER LOBE SUSPICIOUS FOR PNEUMONIA. Assessment & Plan - Diagnosis (1) Elevated troponin I level Is this a current diagnosis for this admission?: Yes (2) Bilateral pneumonia Qualifiers: Pneumonia type: due to unspecified organism Lung location: unspecified part of lung Qualified Code(s): J18.9 - Pneumonia, unspecified organism Is this a current diagnosis for this admission?: Yes (3) SIRS (systemic inflammatory response syndrome) Is this a current diagnosis for this admission?: Yes (4) Diabetes mellitus Qualifiers: Diabetes mellitus type: type 2 Diabetes mellitus fpc insulin use: without fpc use Diabetes mellitus complication status: with other specified complication Qualified Code(s): E11.69 - Type 2 diabetes mellitus with other specified complication Is this a current diagnosis for this admission?: Yes (5) Hyperlipidemia Qualifiers: Hyperlipidemia type: unspecified Qualified Code(s): E78.5 - Hyperlipidemia , unspecified Is this a current diagnosis for this admission?: Yes (6) Hypertension Qualifiers: Hypertension type: essential hypertension Qualified Code(s): I10 - Essential (primary) hypertension Is this a current diagnosis for this admission?: Yes - Notes Notes: Patient still waiting for 2D echocardiogram. Patient has been afebrile. We will therefore go ahead and schedule patient for a stress test prior to discharge. Troponin I elevation: This is most likely related to bilateral pneumonia, systemic inflammatory response syndrome rather than acute coronary syndrome. Patient is not complaining of chest pain but has diabetes. Since patient also has some nonspecific ST-T wave changes, recommend a stress test either prior to discharge or early after discharge. If patient remains if febrile for 48 hours , a stress test can be performed at that time. Bilateral pneumonia: Continue with antibiotic therapy. Obesity: Patient has been encouraged in weight loss. Systemic inflammatory response syndrome: Continue with antibiotic therapy. Patient currently is stabilizing. Diabetes: Recommend good control but avoid any hypo-or hyperglycemia. Dyslipidemia: Recommend statin therapy with LDL below 70 as goal. Agree with cardiac monitoring and 2D echo. 2D echo is pending at the time of dictation. - Time Time with patient: 15-25 minutes Medications reviewed and adjusted accordingly: Yes
--- NOTE | 2017-10-02 11:38 | PDOC CONSULTATION ---
Consultation Consult Date: 10/01/17 Attending physician:: TRINI PEREZ Consult reason:: Positive troponin I History of Present Illness Admission Date/PCP: 09/30/17 17:02 Patient complains of: Shortness of breath, fever and chills History of Present Illness: KENNA HALL is a 52 year old female Difficulty breathing and shortness of breath. Patient states she was feeling well until yesterday evening when she started having difficulty breathing accompanied by generalized weakness and shortness of breath. She is also complaining of chest pain especially on inspiration. She denies any fever nausea or vomiting. Complains of some breast numbness and tingling. She was found to have pneumonia in the emergency room and also septic. Patient denies a cough dysuria frequency or any other pertinent symptoms. Patient denied any prior history of heart problems. Patient was noted to have positive troponin I. I was consulted because of elevated troponin I. Twelve- lead EKG obtained shows sinus rhythm with some minor nonspecific ST-T wave changes. Past Medical History Cardiac Medical History: Reports: Hyperlipidema, Hypertension Pulmonary Medical History: Reports: Asthma EENT Medical History: Reports: None Neurological Medical History: Reports: Ischemic CVA Endocrine Medical History: Reports: Diabetes Mellitus Type 1, Diabetes Mellitus Type 2 Renal/ Medical History: Reports: None GI Medical History: Reports: None Skin Medical History: Reports: Psoriasis Psychiatric Medical History: Reports: None Past Surgical History Past Surgical History: Reports: Cholecystectomy Social History Information Source: Patient Lives with: Spouse/Significant other Smoking Status: Never Smoker Frequency of Alcohol Use: None Hx Recreational Drug Use: No Drugs: None Hx Prescription Drug Abuse: No - Advance Directive Resuscitation Status: Full Code Surrogate healthcare decision maker:: Patient's is the surrogate decision-maker Family History Family History: Reviewed & Not Pertinent, CAD, CVA, DM, Hypertension Parental Family History Reviewed: Yes Children Family History Reviewed: Yes Sibling(s) Family History Reviewed.: Yes Medication/Allergy Home Medications: Hydroxyzine HCl [Atarax 25 mg Tablet] 25 mg PO DAILYP PRN 05/12/17 Losartan Potassium [Cozaar 50 mg Tablet] 50 mg PO Q12 05/12/17 Metformin HCl [Glucophage] 1,000 mg PO BIDBS 05/12/17 Aspirin [Aspirin 81 mg Chewable Tablet] 81 mg PO DAILY tab.chew 05/16/17 Atorvastatin Calcium [Lipitor 80 mg Tablet] 80 mg PO QHS #30 tablet 05/16/17 Buspirone HCl [Buspar 10 mg Tablet] 5 mg PO QAM #90 tablet 05/16/17 Buspirone HCl [Buspar 10 mg Tablet] 10 mg PO QHS #30 tablet 05/16/17 Clopidogrel Bisulfate [Plavix 75 mg Tablet] 75 mg PO DAILY #30 tablet 05/16/17 Divalproex Sodium [Depakote ER 500 mg Tab.sr] 500 mg PO Q12 #60 tab.sr.24h 05/16 Fenofibrate Nanocrystallized [Tricor 48 mg Tablet] 48 mg PO DAILY #30 tablet Metoprolol Tartrate [Lopressor 50 mg Tablet] 50 mg PO Q12 #60 tablet 05/16/17 Amlodipine Besylate [Norvasc 5 mg Tablet] 5 mg PO QHS #30 tablet 10/02/17 Clobetasol Propionate [Temovate 0.05% Topical Soln 25 ml] 1 applic TP Q12 bottle 10/02/17 Levofloxacin [Levaquin 750 mg Tablet] 750 mg PO DAILY #5 tablet 10/02/17 Allergies/Adverse Reactions: No Known Allergies Allergy (Verified 09/30/17 12:40) Review of Systems Review of Systems: Please see history of present illness and past medical history as wall. Constitutional: Positive fever or chills reported. Head : No recent chronic headaches, recent head injury. Eyes: No recent eye pain, diplopia, redness, discharge, acute visual changes. Ears: No recent chronic ear pain, acute hearing loss, ear discharge. Oral cavity: No recent ulcerations, bleeding, oral cavity discomfort. Neck: No recent acute neck pain reported. Hematologic: No recent easy bruising or bleeding or hematologic malignancy reported. Lymphatic: No recent lymphatic malignancy, chronic lymphadenopathy reported yet Cardiovascular system review: See history of present illness. Respiratory system review: No recent chronic cough, hemoptysis, blood clots in the lungs reported. Mild Shortness of breath on exertion Gastrointestinal system review: Negative for any recent acute or chronic abdominal pain, hematemesis, melena, recent change in bowel habits. Genitourinary system review: No recent acute or chronic hematuria, flank pain, UTI etc. reported. Skin system review: Negative for any recent abnormal bruising, no rash, no pruritus reported. Neurologic: No prior history of strokes, mini strokes, seizure disorder. Psychologic: No history of major psychosis or major depression reported. Musculoskeletal: Minor aches and pains reported. No acute joint swelling reported. Endocrine: No recent polyuria, polydipsia, recent heat or cold intolerance. Physical Exam Vital Signs: Temp Pulse Resp BP Pulse Ox 98.4 F 96 16 168/76 H 99 10/01/17 16:05 10/01/17 16:05 10/01/17 16:05 10/01/17 16:05 10/01/17 16:05 Intake & Output 09/30/17 10/01/17 10/02/17 06:59 06:59 06:59 Intake Total 1100 Balance 1100 Weight 95.3 kg Exam: GENERAL: well-nourished and in no acute distress. Alert and oriented x3 HEAD: Atraumatic, normocephalic. EYES: Pupils equal round and reactive to light, extraocular movements intact, sclera anicteric, conjunctiva are normal. ENT: TMs normal, nares patent, oropharynx clear without exudates. Moist mucous membranes. No oral ulcerations or bleeding gums noted NECK: supple without lymphadenopathy. Trachea is central. No cervical or axillary lymphadenopathy noted. Carotids are 2+, JVD WNL LUNGS: Respiration seems nonlabored, no significant accessory muscle action noted. Left basal crackles noted. No wheezes rales or rhonchi noted. No significant dullness noted on percussion. CHEST: Palpation of the chest wall shows no significant chest wall tenderness. No other significant abnormalities noted. HEART: [place] MATERIAL ASSISTANT, No PSH, 1/6 MARILIN aortic area, 1/6 metcalf systolic murmur mitral area, no rubs, no gallops. ABDOMEN: Soft, no significant tenderness appreciated, normoactive bowel sounds. No guarding, no rebound. No rigidity noted . No masses appreciated. EXTREMITIES: Pedal pulses are 1-2+, no calf tenderness noted. No clubbing or cyanosis.trace to 1+ pedal edema noted NEUROLOGICAL: Focused neurological exam showed no significant neurologic deficit. Normal speech, no focal weakness appreciated. PSYCH: Normal mood, normal affect. Judgment and insight within normal limits. SKIN: No significant ecchymosis, skin is noted to be warm. psoriatic rash noted both legs. MUSCULOSKELETAL EXAM: No significant acute joint swelling noted. Results Laboratory Results: 10/01/17 04:25 10/01/17 04:25 09/30/17 10/01/17 10/01/17 19:55 04:25 04:25 WBC 15.9 H RBC 4.72 Hgb 12.5 Hct 38.4 MCV 81 MCH 26.4 L MCHC 32.5 RDW 13.9 Plt Count 206 Sodium 138.5 Potassium 3.8 Chloride 104 Carbon Dioxide 24 Anion Gap 11 BUN 13 Creatinine 0.70 Est GFR ( Amer) > 60 Est GFR (Non-Af Amer) > 60 Glucose 228 H Lactic Acid 1.4 Calcium 8.9 09/30/17 22:20 Troponin I 0.107 EKG Comments: Sinus rhythm with minor nonspecific ST-T wave changes noted. Impressions: Chest X-Ray 09/30/17 12:58 IMPRESSION: NO SIGNIFICANT RADIOGRAPHIC FINDING IN THE CHEST. Chest CT 09/30/17 14:01 IMPRESSION: SCATTERED AIRSPACE DISEASE IN THE RIGHT AND LEFT LOWER LOBE SUSPICIOUS FOR PNEUMONIA. Assessment & Plan - Diagnosis (1) Elevated troponin I level Is this a current diagnosis for this admission?: Yes (2) Bilateral pneumonia Qualifiers: Pneumonia type: due to unspecified organism Lung location: unspecified part of lung Qualified Code(s): J18.9 - Pneumonia, unspecified organism Is this a current diagnosis for this admission?: Yes (3) Morbid obesity with BMI of 40.0-44.9, adult Is this a current diagnosis for this admission?: Yes (5) Diabetes mellitus Qualifiers: Diabetes mellitus type: type 2 Diabetes mellitus assisted insulin use: without termite exterminator use Diabetes mellitus complication status: with other specified complication Qualified Code(s): E11.69 - Type 2 diabetes mellitus with other specified complication Is this a current diagnosis for this admission?: Yes (6) Hyperlipidemia Qualifiers: Hyperlipidemia type: unspecified Qualified Code(s): E78.5 - Hyperlipidemia , unspecified - Notes Notes: Troponin I elevation: This is most likely related to bilateral pneumonia, systemic inflammatory response syndrome rather than acute coronary syndrome. Patient is not complaining of chest pain but has diabetes. Since patient also has some nonspecific ST-T wave changes, recommend a stress test either prior to discharge or early after discharge. If patient remains if febrile for 48 hours , a stress test can be performed at that time. Bilateral pneumonia: Continue with antibiotic therapy. Obesity: Patient has been encouraged in weight loss. Systemic inflammatory response syndrome: Continue with antibiotic therapy. Patient currently is stabilizing. Diabetes: Recommend good control but avoid any hypo-or hyperglycemia. Dyslipidemia: Recommend statin therapy with LDL below 70 as goal. Agree with cardiac monitoring and 2D echo. 2D echo is pending at the time of dictation. - Time Time Spent: 30 to 50 Minutes - CODE STATUS was discussed, patient remains full code. Surrogate decision-maker unchanged. Multiple medical problems were addressed. More than 50% of the time spent coordinating care, discussing management plans with involved caregivers. Management plans discussed with involved personnels. Medical decision making was of moderate to high complexity , patient's has multiple comorbidities. Medications reviewed and adjusted accordingly: Yes
[2017-10-02 12:24] VITALS: BP 148/73
--- NOTE | 2017-10-02 16:55 | PDOC DISCHARGE SUMMARY ---
General - Admit/Disc Date/PCP Admission Date/Primary Care Provider: 09/30/17 17:02 Discharge Date: 10/02/17 - Discharge Diagnosis (1) Sepsis Is this a current diagnosis for this admission?: Yes (2) Elevated troponin I level Is this a current diagnosis for this admission?: Yes (3) Morbid obesity with BMI of 40.0-44.9, adult Is this a current diagnosis for this admission?: Yes (4) Bilateral pneumonia Is this a current diagnosis for this admission?: Yes (5) Diabetes mellitus Is this a current diagnosis for this admission?: Yes (6) Psoriasis Is this a current diagnosis for this admission?: Yes - Additional Information Resuscitation Status: Full Code Discharge Diet: Cardiac, Diabetic Discharge Activity: Activity As Tolerated Prescriptions: Amlodipine Besylate [Norvasc 5 mg Tablet] 5 mg PO QHS #30 tablet Levofloxacin [Levaquin 750 mg Tablet] 750 mg PO DAILY #5 tablet Home Medications: Hydroxyzine HCl [Atarax 25 mg Tablet] 25 mg PO DAILYP PRN 05/12/17 Losartan Potassium [Cozaar 50 mg Tablet] 50 mg PO Q12 05/12/17 Metformin HCl [Glucophage] 1,000 mg PO BIDBS 05/12/17 Aspirin [Aspirin 81 mg Chewable Tablet] 81 mg PO DAILY tab.chew 05/16/17 Atorvastatin Calcium [Lipitor 80 mg Tablet] 80 mg PO QHS #30 tablet 05/16/17 Buspirone HCl [Buspar 10 mg Tablet] 5 mg PO QAM #90 tablet 05/16/17 Buspirone HCl [Buspar 10 mg Tablet] 10 mg PO QHS #30 tablet 05/16/17 Clopidogrel Bisulfate [Plavix 75 mg Tablet] 75 mg PO DAILY #30 tablet 05/16/17 Divalproex Sodium [Depakote ER 500 mg Tab.sr] 500 mg PO Q12 #60 tab.sr.24h 05/16 Fenofibrate Nanocrystallized [Tricor 48 mg Tablet] 48 mg PO DAILY #30 tablet Metoprolol Tartrate [Lopressor 50 mg Tablet] 50 mg PO Q12 #60 tablet 05/16/17 Amlodipine Besylate [Norvasc 5 mg Tablet] 5 mg PO QHS #30 tablet 10/02/17 Clobetasol Propionate [Temovate 0.05% Topical Soln 25 ml] 1 applic TP Q12 bottle 10/02/17 Levofloxacin [Levaquin 750 mg Tablet] 750 mg PO DAILY #5 tablet 10/02/17 History of Present Illness Patient complains of: Patient admitted with difficulty breathing and shortness of breath and found to have pneumonia. History of Present Illness: KENNA HALL is a 52 year old female Difficulty breathing and shortness of breath. Patient states she was feeling well until yesterday evening when she started having difficulty breathing accompanied by generalized weakness and shortness of breath. She is also complaining of chest pain especially on inspiration. She denies any fever nausea or vomiting. Complains of some breast numbness and tingling. She was found to have pneumonia in the emergency room and also septic. Patient denies a cough dysuria frequency or any other pertinent symptoms. Hospital Course Hospital Course: Patient was treated with intravenous antibiotics and she received intravenous fluids due to her dehydration she was found to be septic sepsis has been resolving. Troponins were found to be elevated and so a cardiology consult was also obtained. The plan was for patient to get a two-dimensional echocardiogram done as well as a stress test however patient absconded from the hospital before treatment was completed she was not given any prescriptions Physical Exam Vital Signs: Temp Pulse Resp BP Pulse Ox 97.8 F 70 18 148/73 H 96 10/02/17 11:34 10/02/17 11:34 10/02/17 11:34 10/02/17 11:34 10/02/17 11:34 Intake & Output 10/01/17 10/02/17 10/03/17 06:59 06:59 06:59 Intake Total 1100 300 Balance 1100 300 Weight 95.3 kg 95.3 kg General appearance: PRESENT: no acute distress Ear exam: PRESENT: normal external ear exam Neck exam: ABSENT: carotid bruit, JVD, lymphadenopathy, thyromegaly Respiratory exam: PRESENT: decreased breath sounds, rhonchi, unlabored. ABSENT : wheezes Cardiovascular exam: PRESENT: RRR. ABSENT: diastolic murmur, rubs, systolic murmur Pulses: PRESENT: normal dorsalis pedis pul GI/Abdominal exam: PRESENT: normal bowel sounds, soft. ABSENT: distended, guarding, mass, organolmegaly, rebound, tenderness Neurological exam: PRESENT: alert, awake, oriented to person Results Laboratory Results: 10/02/17 04:52 10/01/17 04:25 10/02/17 04:52 WBC 14.5 H RBC 4.84 Hgb 12.9 Hct 39.1 MCV 81 MCH 26.6 L MCHC 32.9 RDW 13.6 Plt Count 239 09/30/17 22:20 Troponin I 0.107 Impressions: Chest X-Ray 09/30/17 12:58 IMPRESSION: NO SIGNIFICANT RADIOGRAPHIC FINDING IN THE CHEST. Chest CT 09/30/17 14:01 IMPRESSION: SCATTERED AIRSPACE DISEASE IN THE RIGHT AND LEFT LOWER LOBE SUSPICIOUS FOR PNEUMONIA. Qualifiers - * PATEINT BEING DISCHARGED WITH ANY OF THE FOLLOWING DIAGNOSIS?: No Plan Time Spent: Less than 30 Minutes - Patient absconded from the hospital
== END 2017-10-02 13:30 | disposition left against medical advice (07) | DRG 871 ==
LOC: ER 12:19 → EH 17:02 → 4N 21:17
PROVIDERS: ADMIT Emergency Medicine; ATTEND Emergency Medicine
PROC: 3E0F73Z Introduction of Anti-inflammatory into Respiratory Tract, Via Natural or Artificial Opening (ICD-10-PCS; principal; 2017-10-01)
DX: A41.9 Sepsis, unspecified organism (principal); J18.9 Pneumonia, unspecified organism; Z68.41 Body mass index [BMI] 40.0-44.9, adult; E66.01 Morbid (severe) obesity due to excess calories; L40.9 Psoriasis, unspecified; E11.9 Type 2 diabetes mellitus without complications; R74.8 Abnormal levels of other serum enzymes; E86.0 Dehydration; E78.5 Hyperlipidemia, unspecified; I10 Essential (primary) hypertension; J45.909 Unspecified asthma, uncomplicated; Z86.73 Personal history of transient ischemic attack (TIA), and cerebral infarction without residual deficits; Z90.49 Acquired absence of other specified parts of digestive tract; Z82.49 Family history of ischemic heart disease and other diseases of the circulatory system; Z79.899 Other long term (current) drug therapy
CPT/HCPCS: 36415; 71046; 71260; 80048; 80053; 81001; 82550; 82553; 82962; 83605; 83690; 84484; 85025; 85027; 87040; 87086; 93005; 93010; 99285; J1650; J1815; J1956; J2543; J3490; J7030; J7120

== ENCOUNTER 2019-04-26 12:29 | Emergency (ER) | payer MEDICARE, MEDICAID ==
--- NOTE | 2019-04-26 13:53 | ER Document Report ---
ED Medical Screen (RME) - General Chief Complaint: Weakness Stated Complaint: WEAKNESS Time Seen by Provider: 04/26/19 13:47 Mode of Arrival: Ambulatory Information source: Patient Notes: Patient presents with a complaint of left arm weakness and concern about stroke. Patient states symptoms started 2 days ago. Patient states she did have some drooling but that has resolved and she did have difficulty with speech although her speech has cleared up. Patient states that her gait continues to be off. Patient denies any headache pain. Patient denies any chest pain. Patient is hypertensive in triage. I have greeted and performed a rapid initial assessment of this patient. A comprehensive ED assessment and evaluation of the patient, analysis of test results and completion of the medical decision making process will be conducted by additional ED providers. TRAVEL OUTSIDE OF THE [place] IN LAST 30 DAYS: No - Related Data Allergies/Adverse Reactions: No Known Allergies Allergy (Verified 04/26/19 13:46) Past Medical History - Past Medical History Cardiac Medical History: Reports: Hx Hypercholesterolemia, Hx Hypertension Pulmonary Medical History: Reports: Hx Asthma Neurological Medical History: Reports: Hx Cerebrovascular Accident - 2008 Endocrine Medical History: Reports: Hx Diabetes Mellitus Type 1, Hx Diabetes Mellitus Type 2 Renal/ Medical History: Denies: Hx Peritoneal Dialysis Skin Medical History: Reports Hx Psoriasis Past Surgical History: Reports: Hx Cholecystectomy - Immunizations Hx Diphtheria, Pertussis, Tetanus Vaccination: Yes Physical Exam - Vital signs Vitals: Temp Pulse Resp BP Pulse Ox 98.6 F 61 16 228/92 H 93 04/26/19 13:09 04/26/19 13:09 04/26/19 13:09 04/26/19 13:09 04/26/19 13:09 - General Notes: Subtle decrease in strength to pigment grinder of left hand as compared to the right, subtle decrease in nasolabial fold in the left side of the face Course - Vital Signs Vital signs: Temp Pulse Resp BP Pulse Ox 98.6 F 61 16 190/85 H 93 04/26/19 13:09 04/26/19 13:11 04/26/19 13:09 04/26/19 13:11 04/26/19 13:09
--- NOTE | 2019-04-26 14:55 | RADIOLOGY REPORT (SQ) ---
EXAM DESCRIPTION: CT HEAD WITHOUT COMPLETED DATE/TIME: 04/26/2019 2:31 pm REASON FOR STUDY: arm weakness, HTN COMPARISON: MR 05/13/2017. CT 05/12/2017. TECHNIQUE: Axial images acquired through the brain without intravenous contrast. Images reviewed wi th bone, brain and subdural windows. Additional sagittal and coronal reconstructions were generated. Images stored on PACS. All CT scanners at this facility use dose modulation, iterative reconstruction, and/or weight based d osing when appropriate to reduce radiation dose to as low as reasonably achievable (ALARA). [facility]: Dose Right [facility]: CareDose [facility]: Dose Right [facility]: Teradose 4D [facility]: Smart Glazeon RADIATION DOSE: CT Rad equipment meets quality standard of care and radiation dose reduction techniq ues were employed. CTDIvol: 48.6 mGy. DLP: 930 mGy-cm. mGy. LIMITATIONS: None. FINDINGS: VENTRICLES: Normal size and contour. CEREBRUM: No masses. No hemorrhage. No midline shift. Old right posterior parietal infarction. Ol d left occipital infarction. No evidence for acute infarction. Extensive areas of low density in the white matter most likely chronic small vessel ischemic changes. CEREBELLUM: No masses. No hemorrhage. No alteration of density. No evidence for acute infarction. EXTRAAXIAL SPACES: No fluid collections. No masses. ORBITS AND GLOBE: No intra- or extraconal masses. Normal contour of globe without masses. CALVARIUM: No fracture. PARANASAL SINUSES: No fluid or mucosal thickening. SOFT TISSUES: No mass or hematoma. OTHER: No other significant finding. IMPRESSION: Extensive chronic microvascular ischemia with no acute intracranial imaging findings. EVIDENCE OF ACUTE STROKE: NO. COMMENT: Quality ID # [id number]: Final reports with documentation of one or more dose reduction techniques (e.g., Automated exposure control, adjustment of the mA and/or kV according to patient size, use of iterative reconstruction technique) TECHNICAL DOCUMENTATION: JOB ID: [id number] [employer]- All Rights Reserved Reading location - IP/workstation name: [email or web address]
--- NOTE | 2019-04-26 15:04 | RADIOLOGY REPORT (SQ) ---
EXAM DESCRIPTION: CHEST SINGLE VIEW COMPLETED DATE/TIME: 04/26/2019 2:41 pm REASON FOR STUDY: arm weakness, HTN COMPARISON: 09/30/2017 EXAM PARAMETERS: NUMBER OF VIEWS: One view. TECHNIQUE: Single frontal radiographic view of the chest acquired. RADIATION DOSE: NA LIMITATIONS: None. FINDINGS: LUNGS AND PLEURA: No opacities, masses or pneumothorax. No pleural effusion. MEDIASTINUM AND HILAR STRUCTURES: No masses. Contour normal. HEART AND VASCULAR STRUCTURES: Heart normal in size. Normal vasculature. BONES: No acute findings. HARDWARE: None in the chest. OTHER: No other significant finding. IMPRESSION: NO ACUTE RADIOGRAPHIC FINDING IN THE CHEST. TECHNICAL DOCUMENTATION: JOB ID: [id number] [employer]- All Rights Reserved Reading location - IP/workstation name: [email or web address]
[2019-04-26 15:36] LABS: INTERNATIONAL RATION (INR) 0.99; PROTHROMBIN TIME 13.1 SEC (11.4-15.4)
[2019-04-26 15:37] LABS: PARTIAL THROMBOPLASTIN TIME 30.3 SEC (23.5-35.8)
[2019-04-26] MEDS ORDERED: ASPIRIN 325 MG TABLET PO ONE (15:42)
--- NOTE | 2019-04-26 15:45 | ER Document Report ---
ED General - General Chief Complaint: Weakness Stated Complaint: WEAKNESS Time Seen by Provider: 04/26/19 13:47 Mode of Arrival: Ambulatory TRAVEL OUTSIDE OF THE [place] IN LAST 30 DAYS: No - HPI Patient complains to provider of: left arm weakness Onset: Yesterday Onset/Duration: Gradual Quality of pain: No pain Severity: Moderate Pain Level: Denies Context: 54 year old right handed female with htn, dm, hyperlipidemia presents with left arm hand weakness for 1.5 days. No pain. No injury. No fever or chills. Has some degree of generalized weakness also. - Related Data Allergies/Adverse Reactions: No Known Allergies Allergy (Verified 04/26/19 13:46) Past Medical History - General Information source: Patient - Social History Smoking Status: Never Smoker Chew tobacco use (# tins/day): No Frequency of alcohol use: None Drug Abuse: None Family History: Reviewed & Not Pertinent, CAD, CVA, DM, Hypertension Patient has suicidal ideation: No Patient has homicidal ideation: No - Past Medical History Cardiac Medical History: Reports: Hx Hypercholesterolemia, Hx Hypertension Pulmonary Medical History: Reports: Hx Asthma Neurological Medical History: Reports: Hx Cerebrovascular Accident - 2008 Endocrine Medical History: Reports: Hx Diabetes Mellitus Type 1, Hx Diabetes Mellitus Type 2 Renal/ Medical History: Denies: Hx Peritoneal Dialysis Skin Medical History: Reports Hx Psoriasis Past Surgical History: Reports: Hx Cholecystectomy - Immunizations Hx Diphtheria, Pertussis, Tetanus Vaccination: Yes Hx Pneumococcal Vaccination: 02/18/09 Physical Exam - Vital signs Vitals: Temp Pulse Resp BP Pulse Ox 98.6 F 61 16 228/92 H 93 04/26/19 13:09 04/26/19 13:09 04/26/19 13:09 04/26/19 13:09 04/26/19 13:09 Interpretation: Normal - General General appearance: Appears well, Alert - HEENT Head: Normocephalic, Atraumatic Eyes: Normal Pupils: PERRL - Respiratory Respiratory status: No respiratory distress Chest status: Nontender Breath sounds: Normal Chest palpation: Normal - Cardiovascular Rhythm: Regular Heart sounds: Normal auscultation Murmur: No - Abdominal Inspection: Normal Distension: No distension Bowel sounds: Normal Tenderness: Nontender Organomegaly: No organomegaly - Back Back: Normal, Nontender - Extremities General upper extremity: Normal inspection, Nontender, Normal color, Normal ROM, Normal temperature General lower extremity: Normal inspection, Nontender, Normal color, Normal ROM, Normal temperature, Normal weight bearing. No: Vishnu's sign - Neurological Neuro grossly intact: Yes Cognition: Normal Orientation: AAOx4 [place] Coma Scale Eye Opening: Spontaneous [place] Coma Scale Verbal: Oriented [place] Coma Scale Motor: Obeys Commands [place] Coma Scale Total: 15 Speech: Normal Motor strength normal: LUE, RUE, LLE, RLE Sensory: Normal - Psychological Associated symptoms: Normal affect, Normal mood - Skin Skin Temperature: Warm Skin Moisture: Dry Skin Color: Normal Course - Re-evaluation Re-evalutation: 04/26/19 17:38 MDM 54 year old right handed female with left arm weakness and speech difficulty for almost 2 days. Time of onset excludes her from consideration of TPA and additionally she is not a procedural candidate at this time due to length of time. While she is htn at this time we will permit this. - Vital Signs Vital signs: Temp Pulse Resp BP Pulse Ox 98.6 F 58 L 20 184/96 H 98 04/26/19 13:09 04/26/19 16:37 04/26/19 16:37 04/26/19 16:37 04/26/19 16:37 - Laboratory Result Diagrams: 04/26/19 15:20 04/26/19 15:20 Laboratory results interpreted by me: 04/26/19 04/26/19 15:20 15:20 WBC 10.8 H MCH 26.8 L RDW 14.3 H Glucose 148 H - Diagnostic Test Radiology reviewed: Reports reviewed - EKG Interpretation by Me EKG shows normal: Sinus rhythm Rate: Bradycardia Discharge - Discharge Clinical Impression: CVA (cerebral vascular accident) Qualifiers: CVA mechanism: unspecified Qualified Code(s): I63.9 - Cerebral infarction, unspecified Diabetes mellitus Qualifiers: Diabetes mellitus type: type 2 Diabetes mellitus rodent exterminator insulin use: without rodent exterminator use Diabetes mellitus complication status: with other specified complication Qualified Code(s): E11.69 - Type 2 diabetes mellitus with other specified complication Condition: Fair Disposition: ADMITTED INPATIENT Admitting Provider: Husam (Hospitalist) Unit Admitted: [facility]
[2019-04-26 15:49] LABS: ABSOLUTE BASOPHILS # (AUTO) 0.1 10^3/uL (0.0-0.2); ABSOLUTE EOSINOPHILS # (AUTO) 0.3 10^3/uL (0.0-0.6); ABSOLUTE LYMPHOCYTES (AUTO) 1.9 10^3/uL (0.5-4.7); ABSOLUTE MONOCYTES (AUTO) 0.3 10^3/uL (0.1-1.4); ABSOLUTE NEUT (AUTO) 8.2 10^3/uL (1.7-8.2); BASOPHILS % (AUTO) 0.6 % (0-2); EOSINOPHILS % (AUTO) 2.7 % (0-6); HEMATOCRIT 39.6 % (36.0-47.0); HEMOGLOBIN 13.1 g/dL (12.0-15.5); MEAN CORPUSCULAR HEMOGLOBIN 26.8 pg (27.0-33.4); MEAN CORPUSCULAR HGB CONC 33.1 g/dL (32.0-36.0); MEAN CORPUSCULAR VOLUME 81 fl (80-97); MONOCYTES % (AUTO) 3.2 % (3-13); PLATELET COUNT 292 10^3/uL (150-450); RED BLOOD COUNT 4.89 10^6/uL (3.72-5.28); RED CELL DISTRIBUTION WIDTH 14.3 % (11.5-14.0); SEGMENTED NEUTROPHILS % (AUTO) 75.5 % (42-78); TOTAL CELLS COUNTED % (AUTO) 100 %; WHITE BLOOD COUNT 10.8 10^3/uL (4.0-10.5)
[2019-04-26 16:06] LABS: ALBUMIN 3.8 g/dL (3.5-5.0); ALKALINE PHOSPHATASE 110 U/L (38-126); ANION GAP 12 (5-19); ASPARTATE AMINO TRANSFERASE 21 U/L (14-36); BILIRUBIN,DIRECT 0.2 mg/dL (0.0-0.4); BILIRUBIN,TOTAL 0.5 mg/dL (0.2-1.3); BLOOD UREA NITROGEN 19 mg/dL (7-20); CALCIUM 9.4 mg/dL (8.4-10.2); CARBON DIOXIDE 22 mmol/L (22-30); CHLORIDE 106 mmol/L (98-107); CREATINE KINASE 76 U/L (30-135); GLUCOSE 148 mg/dL (75-110); TOTAL PROTEIN 7.4 g/dL (6.3-8.2)
[2019-04-26 16:37] LABS: CREATINE KINASE MB 0.91 ng/mL (<4.55)
[2019-04-26 16:43] LABS: TROPONIN I < 0.012 ng/mL
--- NOTE | 2019-04-26 18:15 | EKG REPORT ---
SEVERITY:- ABNORMAL ECG - SINUS RHYTHM VENTRICULAR PREMATURE COMPLEX INTERPOLATED VENTRICULAR PREMATURE COMPLEX LVH WITH SECONDARY REPOLARIZATION ABNORMALITY : Confirmed by: Yony Salas MD 26-Apr-2019 18:12:35
[2019-04-26] MEDS ORDERED: HYDRALAZINE HCL 50 MG TABLET PO ONE (18:48)
[2019-04-26 19:08] VITALS: BP 186/74
--- NOTE | 2019-04-26 19:56 | PDOC H&P ---
History of Present Illness Admission Date/PCP: 04/26/19 17:50 GAURI SHAH PA-C Patient complains of: Numbness in her fingers starting Friday. Progressed to numbness in both hands and weakness left foot. History of Present Illness: KENNA HALL is a 54 year old female who has limited details on some of her medical history. She has a history of diabetes, coronary artery disease, hyperlipidemia and possible depression. She uses inhalers but is not sure why. She also has extensive psoriasis. She states that on Friday she began to notice tingling in her hand. On Friday her left foot was involved. At this time both hands were involved and the patient thought it might have been carpal tunnel syndrome. She has had this in the past. She in fact took out her gloves that she wore for her carpal tunnel but these did not help. By Friday she felt like she was dragging her left foot. On Friday she considered seeking help. She looked things up on the computer and felt that she should not worry. On Friday she was close to going to the emergency department. This morning she said that she felt better but her told her that he was taking her because of the worrisome symptoms. Upon arrival to the emergency department she was found to be hypertensive with a blood pressure of 184/96. She did not have an elevated white blood cell count and her glucose was 148. Labs were otherwise unremarkable. CT scan of the head showed microvascular changes but no acute findings. Because of her symptom complex especially with her high blood pre ssure she was referred to the hospital service for admission. Past Medical History Cardiac Medical History: Reports: Coronary Artery Disease - Multiple medications suggesting coronary artery disease, Hyperlipidema, Hypertension Pulmonary Medical History: Reports: Asthma Endocrine Medical History: Reports: Diabetes Mellitus Type 2, Obesity Malignancy Medical History: Reports: None GI Medical History: Denies: Cirrhosis, Gastroesophageal Reflux Disease, Hepatitis Musculoskeltal Medical History: Denies: Arthritis, Fibromyalgia, Gout Skin Medical History: Reports: Psoriasis Psychiatric Medical History: Denies: Alcohol Dependency, Substance Abuse, Tobacco Dependency Hematology: Denies: Anemia, Bleeding Tendencies Infectious Medical History: Reports: None Past Surgical History Past Surgical History: Reports: Cholecystectomy Social History Information Source: Patient, Relative - Lives with: Family Smoking Status: Never Smoker Electronic Cigarette use?: No Frequency of Alcohol Use: None Hx Recreational Drug Use: No Drugs: None Hx Prescription Drug Abuse: No - Advance Directive Resuscitation Status: Do Not Intubate Surrogate healthcare decision maker:: Her is the dedicated decision maker Family History Family History: CAD, CVA, DM, Hypertension, Other - Psoriasis Parental Family History Reviewed: Yes Children Family History Reviewed: Yes Sibling(s) Family History Reviewed.: Yes Medication/Allergy Allergies/Adverse Reactions: No Known Allergies Allergy (Verified 04/26/19 13:46) Review of Systems Constitutional: PRESENT: weight loss - Intentional and meaningful. ABSENT: fever(s), headache(s), night sweats Eyes: ABSENT: visual disturbances Ears: ABSENT: hearing changes Nose, Mouth, and Throat: ABSENT: headache(s), mouth pain Gastrointestinal: PRESENT: nausea - Transient over the weekend. ABSENT: abdominal pain, constipation, diarrhea, vomiting Genitourinary: ABSENT: difficulty urinating, dysuria Musculoskeletal: ABSENT: joint swelling, muscle weakness Integumentary: PRESENT: other - Diffuse psoriasis plaques all extremities Neurological: ABSENT: abnormal speech, lack of coordination, memory loss, numbness, syncope, tingling, weakness Endocrine: ABSENT: cold intolerance, heat intolerance, polydipsia, polyphagia, polyuria Hematologic/Lymphatic: ABSENT: easy bleeding, easy bruising Allergic/Immunologic: ABSENT: seasonal rhinorrhea Physical Exam Vital Signs: Temp Pulse Resp BP Pulse Ox 98.2 F 65 12 186/74 H 98 04/26/19 19:00 04/26/19 19:00 04/26/19 19:00 04/26/19 19:00 04/26/19 19:00 Intake & Output 04/25/19 04/26/19 04/27/19 06:59 06:59 06:59 Weight 95.9 kg General appearance: PRESENT: no acute distress, cooperative, morbidly obese, well-developed Head exam: PRESENT: atraumatic, normocephalic Eye exam: PRESENT: conjunctiva pink, EOMI. ABSENT: scleral icterus Ear exam: PRESENT: normal external ear exam. ABSENT: bleeding, drainage Mouth exam: PRESENT: moist, tongue midline Respiratory exam: PRESENT: clear to auscultation saud, symmetrical, unlabored. ABSENT: prolonged expiratory phas, rales, rhonchi, tachypnea, wheezes Cardiovascular exam: PRESENT: RRR, +S1, +S2, systolic murmur - 2/6 GI/Abdominal exam: PRESENT: normal bowel sounds, soft, other - Protuberant. A BSENT: guarding, tenderness Rectal exam: PRESENT: deferred Gentrourinary exam: ABSENT: indwelling catheter Extremities exam: ABSENT: calf tenderness, joint swelling, pedal edema Musculoskeletal exam: PRESENT: normal inspection. ABSENT: deformity, tenderness Neurological exam: PRESENT: alert, awake, oriented to person, oriented to place, oriented to time, oriented to situation, CN II-XII grossly intact. ABSENT: motor sensory deficit - Strength in all extremities is symmetric and within normal limits. No altered sensation. Psychiatric exam: PRESENT: appropriate affect. ABSENT: agitated, anxious Focused psych exam: ABSENT: delusional, restlessness Skin exam: PRESENT: dry, rash - Diffuse psoriatic plaques on all extremities., warm Results Laboratory Results: 04/26/19 15:20 04/26/19 15:20 04/26/19 04/26/19 15:20 15:20 WBC 10.8 H RBC 4.89 Hgb 13.1 Hct 39.6 MCV 81 MCH 26.8 L MCHC 33.1 RDW 14.3 H Plt Count 292 Seg Neutrophils % 75.5 Sodium 139.7 Potassium 4.0 Chloride 106 Carbon Dioxide 22 Anion Gap 12 BUN 19 Creatinine 0.76 Est GFR ( Amer) > 60 Glucose 148 H Calcium 9.4 Total Bilirubin 0.5 AST 21 Alkaline Phosphatase 110 Total Protein 7.4 Albumin 3.8 04/26/19 04/26/19 15:20 15:20 Creatine Kinase 76 CK-MB (CK-2) 0.91 Troponin I < 0.012 Impressions: Chest X-Ray 04/26/19 13:52 IMPRESSION: NO ACUTE RADIOGRAPHIC FINDING IN THE CHEST. Head CT 04/26/19 13:52 IMPRESSION: Extensive chronic microvascular ischemia with no acute intracranial imaging findings. EVIDENCE OF ACUTE STROKE: NO. Assessment and Plan - Diagnosis (1) Hypertensive emergency without congestive heart failure Is this a current diagnosis for this admission?: Yes (2) Hypertensive encephalopathy Is this a current diagnosis for this admission?: Yes (3) Hyperlipidemia Qualifiers: Hyperlipidemia type: unspecified Qualified Code(s): E78.5 - Hyperlipidemia, unspecified Is this a current diagnosis for this admission?: Yes (4) Diabetes mellitus Qualifiers: Diabetes mellitus type: type 2 Diabetes mellitus terminal manager insulin use: without terminal manager use Diabetes mellitus complication status: with other specified complication Qualified Code(s): E11.69 - Type 2 diabetes mellitus with other specified complication Is this a current diagnosis for this admission?: Yes (5) Psoriasis Is this a current diagnosis for this admission?: Yes (6) Morbid obesity with BMI of 45.0-49.9, adult Is this a current diagnosis for this admission?: Yes - Plan Summary Summary: 04/26/2019 I will admit the patient to observation status. Hypertension-the patient is on metoprolol and losartan/hydrochlorothiazide. Systolic blood pressure did rise over 200. She had an elevated pulse pressure. Her marked increase in blood pressure could certainly cause the neurologic symp toms that she reported as a result of hypertensive encephalopathy. Will admit the patient to [facility]. She will remain on telemetry monitoring. We will add additional agents to decrease her pressure but keep it above 160 systolic to avoid hypoperfusion. Diabetes mellitus type 2-continue Januvia with metformin and add insulin sliding scale. Accu-Cheks q. before meals and at bedtime Coronary artery disease-based on the medication regimen I believe the patient does have coronary disease. She was supposed to be slated for a test with cardiology but it was rescheduled. We will obtain an echocardiogram and consult cardiology if indicated. Hyperlipidemia-continue the atorvastatin and fenofibrate. Psoriasis-continue clobetasol ointment The patient has a history of asthma and uses an inhaler at home. Will order as needed nebulizer treatments. In addition she is on Depakote and BuSpar. I will try and get more information tomorrow. We will continue these medications for now. - Time Time Spent with patient: 35 or more minutes Medications reviewed and adjusted accordingly: Yes Anticipated discharge: Home Within: within 48 hours
--- NOTE | 2019-04-26 20:06 | Left Against Medical Advice ---
Against Medical Advice Admission Date/Time: 04/26/19 17:50 Primary Care Provider: GAURI SHAH PA-C Date of Patient Emigration: 04/26/19 - Diagnosis: (1) Hypertensive emergency without congestive heart failure Is this a current diagnosis for this admission?: Yes (2) Hypertensive encephalopathy Is this a current diagnosis for this admission?: Yes (3) Hyperlipidemia Is this a current diagnosis for this admission?: Yes (4) Diabetes mellitus Is this a current diagnosis for this admission?: Yes (5) Psoriasis Is this a current diagnosis for this admission?: Yes (6) Morbid obesity with BMI of 45.0-49.9, adult Is this a current diagnosis for this admission?: Yes - Summary: Summary: Please see Admission and Progress Notes as well. KENNA HALL is a 54 F, who LEFT AGAINST MEDICAL ADVICE. The Patient was admitted on 04/26/19 17:50. After reviewing her symptoms as well as her clinical findings I finished my exam and was going to proceed with admission orders. At that time the patient told me she did not want to stay in the hospital. I tried to explain to her of the importance of getting her blood pressure under better control. She clearly has a history of heart disease based on her medication regimen. She in fact did not want to stay. Her was in the room. I asked him if he agreed and pointed out the risks. He said that he understood. He would make sure that they go to the primary care office tomorrow to be seen. I had ordered a dose of hydralazine to help ease the systolic pressure. This will be given prior to her leaving.
== END 2019-04-26 19:10 | disposition left against medical advice (07) ==
LOC: ER 12:29 → EH 17:50 → UNDOADMIN 17:50 → ER 19:10 → UNDODISIN 19:10
DX: I63.9 Cerebral infarction, unspecified (principal); I16.0 Hypertensive urgency; I11.9 Hypertensive heart disease without heart failure; I67.4 Hypertensive encephalopathy; E78.5 Hyperlipidemia, unspecified; E11.69 Type 2 diabetes mellitus with other specified complication; L40.9 Psoriasis, unspecified; E66.01 Morbid (severe) obesity due to excess calories; Z68.42 Body mass index [BMI] 45.0-49.9, adult; R20.0 Anesthesia of skin; M62.81 Muscle weakness (generalized); I25.10 Atherosclerotic heart disease of native coronary artery without angina pectoris; J45.909 Unspecified asthma, uncomplicated
CPT/HCPCS: 93005; 99285; 36415; 82553; 82550; 85025; 85610; 85730; 80053; 84484; 71045; 70450; 93010; A9270 ×2

== ENCOUNTER 2019-04-26 20:50 | Emergency (ER) | payer MEDICARE, MEDICAID ==
[2019-04-26 21:04] VITALS: BP 184/83
== END 2019-04-27 02:22 | disposition left against medical advice (07) ==
LOC: ER 20:50
DX: Z53.21 Procedure and treatment not carried out due to patient leaving prior to being seen by health care provider (principal); R06.02 Shortness of breath

== ENCOUNTER 2019-05-12 20:24 | Emergency (ER) | payer MEDICARE, MEDICAID ==
--- NOTE | 2019-05-12 20:36 | ER Document Report ---
ED Medical Screen (RME) - General Chief Complaint: Fever Stated Complaint: FEVER,BODY ACHES Time Seen by Provider: 05/12/19 20:34 Primary Care Provider: GAURI SHAH PA-C [Primary Care Provider] - Follow up as needed Mode of Arrival: Wheelchair Information source: Patient Notes: Patient presents complaining of difficulty breathing that started around 530 this evening. Patient states she did have chest pain earlier this evening but is presently resolved. Patient states she has had a cough for the past month. Patient reports feeling sick for the past 2 weeks. Patient denies any nausea vomiting diarrhea. Patient is status post recent CVA. Patient also has a history of dyslipidemia and diabetes. I have greeted and performed a rapid initial assessment of this patient. A comprehensive ED assessment and evaluation of the patient, analysis of test results and completion of the medical decision making process will be conducted by additional ED providers. TRAVEL OUTSIDE OF THE [place] IN LAST 30 DAYS: No - Related Data Allergies/Adverse Reactions: No Known Allergies Allergy (Verified 05/12/19 20:34) Past Medical History - Past Medical History Cardiac Medical History: Reports: Hx Coronary Artery Disease - Multiple me dications suggesting coronary artery disease, Hx Hypercholesterolemia, Hx Hypertension Pulmonary Medical History: Reports: Hx Asthma Neurological Medical History: Reports: Hx Cerebrovascular Accident - 2008 Endocrine Medical History: Reports: Hx Diabetes Mellitus Type 1, Hx Diabetes Mellitus Type 2 Renal/ Medical History: Denies: Hx Peritoneal Dialysis GI Medical History: Denies: Hx Cirrhosis, Hx Gastroesophageal Reflux Disease, Hx Hepatitis Musculoskeltal Medical History: Denies Hx Arthritis, Denies Hx Fibromyalgia, Denies Hx Gout Skin Medical History: Reports Hx Psoriasis Infectious Medical History: Denies: Hx Hepatitis Past Surgical History: Reports: Hx Cholecystectomy - Immunizations Hx Diphtheria, Pertussis, Tetanus Vaccination: Yes Physical Exam - Respiratory Respiratory status: No respiratory distress Chest status: Nontender Breath sounds: Nonproductive cough - Cardiovascular Rhythm: Regular Heart sounds: S1 appreciated, S2 appreciated Doctor's Discharge - Discharge Referrals: GAURI SHAH PA-C [Primary Care Provider] - Follow up as needed
--- NOTE | 2019-05-12 21:25 | RADIOLOGY REPORT (SQ) ---
EXAM DESCRIPTION: XR CHEST 2 VIEWS COMPLETED DATE/TME: 05/12/2019 20:34 CLINICAL HISTORY: 54 years, Female, cp, diff breathing COMPARISON: 04/26/2019 chest NUMBER OF VIEWS: 2 TECHNIQUE: 2 view chest LIMITATIONS: None. FINDINGS: The heart size is normal. Atheromatous change thoracic aorta. Mild elevation of the right hemidiaphragm. The lungs are clear. There is no pneumothorax IMPRESSION: No acute cardiopulmonary process copyright 2010 [employer]- All Rights Reserved
[2019-05-12 22:39] LABS: ABSOLUTE BASOPHILS # (AUTO) 0.1 10^3/uL (0.0-0.2); ABSOLUTE EOSINOPHILS # (AUTO) 0.7 10^3/uL (0.0-0.6); ABSOLUTE LYMPHOCYTES (AUTO) 3.6 10^3/uL (0.5-4.7); ABSOLUTE MONOCYTES (AUTO) 0.5 10^3/uL (0.1-1.4); ABSOLUTE NEUT (AUTO) 9.4 10^3/uL (1.7-8.2); BASOPHILS % (AUTO) 0.9 % (0-2); EOSINOPHILS % (AUTO) 5.2 % (0-6); HEMOGLOBIN 14.2 g/dL (12.0-15.5); LYMPHOCYTES % (AUTO) 25.4 % (13-45); MEAN CORPUSCULAR HEMOGLOBIN 26.5 pg (27.0-33.4); MEAN CORPUSCULAR VOLUME 80 fl (80-97); MONOCYTES % (AUTO) 3.4 % (3-13); RED BLOOD COUNT 5.35 10^6/uL (3.72-5.28); RED CELL DISTRIBUTION WIDTH 13.6 % (11.5-14.0); SEGMENTED NEUTROPHILS % (AUTO) 65.1 % (42-78); TOTAL CELLS COUNTED % (AUTO) 100 %; WHITE BLOOD COUNT 14.4 10^3/uL (4.0-10.5)
[2019-05-12 22:57] LABS: PLATELET COUNT 233 10^3/uL (150-450)
[2019-05-13 00:09] VITALS: BP 152/89
--- NOTE | 2019-05-13 20:18 | EKG REPORT ---
SEVERITY:- ABNORMAL ECG - SINUS RHYTHM ABNORMAL T, CONSIDER ISCHEMIA, LATERAL LEADS : Confirmed by: Karon Castillo MD 13-May-2019 20:18:04
== END 2019-05-13 00:49 | disposition left against medical advice (07) ==
LOC: ER 20:24
DX: R50.9 Fever, unspecified (principal); M79.10 Myalgia, unspecified site; R07.9 Chest pain, unspecified; I25.10 Atherosclerotic heart disease of native coronary artery without angina pectoris; E78.00 Pure hypercholesterolemia, unspecified; I10 Essential (primary) hypertension; E11.9 Type 2 diabetes mellitus without complications; Z86.73 Personal history of transient ischemic attack (TIA), and cerebral infarction without residual deficits; Z90.49 Acquired absence of other specified parts of digestive tract
CPT/HCPCS: 36415; 71046; 85025; 93005; 93010